=== PATIENT | female | born 1930 | race Caucasian/White ===

== ENCOUNTER → 2017-06-09 10:19 | Emergency (ER) | payer MEDICARE ==
[~2017-06-09 10:19] MED LIST: NS 0.9% 1000 ML* 1,000 ML IV ONE; cefTRIAXone(*) 1 GM in NS 0.9% 50 ML* 50 ML IVPB ONE
--- NOTE | 2017-06-09 12:07 | RAD ---
INDICATION: Head trauma after a fall COMPARISON: None. TECHNIQUE: Contiguous axial sections of the brain were obtained from the skull base to the vertex without contrast. FINDINGS: The ventricles, cisterns and sulci exhibit symmetrical involutional changes. There is periventricular and subcortical white matter hypoattenuation most consistent with chronic microvascular disease in a patient of this age. Otherwise, the schmid-white matter differentiation is adequately maintained and there is no sulcal effacement. No significant focal abnormality or mass effect is present. There is no evidence for intracranial hemorrhage. Coarse atherosclerotic calcification is noted at the bilateral petrous carotid arteries and the left greater than right vertebral arteries. No significant focal osseous abnormality is present. The visualized portion of the paranasal sinuses and mastoid air cells appear clear. IMPRESSION: Chronic age-appropriate findings described above without evidence of acute traumatic injury.
[2017-06-09 12:26] LABS: Urine Bacteria Absent (Absent); Urine Bilirubin Negative (Negative); Urine Glucose Negative (Negative); Urine Nitrite Positive (Negative)
[2017-06-09 12:29] LABS: Hematocrit 34 % (35-47); Hemoglobin 11.3 g/dl (12.0-16.0); Mean Corpuscular HGB Conc 33 g/dl (31-36); Mean Corpuscular Hemoglobin 30 pg (27-31); Mean Corpuscular Volume 91 fL (80-97); Mean Platelet Volume 7 um3 (7.4-10.4); Red Blood Count 3.71 10^6/ul (4.0-5.4); Red Cell Distribution Width 13 % (10.5-15); White Blood Count 7.3 10^3/ul (3.5-10.8)
[2017-06-09 12:45] LABS: Albumin 4.1 g/dL (3.2-5.2); BUN/Creatinine Ratio 16.3 (8-20); Calcium 9.1 mg/dL (8.6-10.3); EGFR Non-African American 53.7 (>60); Magnesium 2.2 mg/dL (1.9-2.7); Potassium 4.3 mmol/L (3.5-5.0); Total Bilirubin 0.3 mg/dL (0.2-1.0); Total Protein 7.1 g/dL (6.4-8.9)
[2017-06-09 12:55] LABS: TSH (Thyroid Stimulating Horm) 1.45 mcIU/mL (0.34-5.60)
[2017-06-09 15:15] VITALS: BP 149/86
--- NOTE | 2017-06-09 18:45 | ED ---
Mina Anh Auryana, scribed for Temo Brown MD on 06/09/17 at 1105 . Head Injury - HPI Summary HPI Summary: 87 year old female presents to the ED s/p fall and head injury. Per health care sanitary technician - patient stood up after eating breakfast and fell backwards. Patient denies any recent sickness, fever, chills, headache, neck pain, syncope or any LOC. Ditch Cleaner reports that patient has had pain and burning with urination, but had negative UA screen last week. Ditch Cleaner also reports increased weakness and decreased activity - reports patient has been laying in bed more often. 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 Patient states that she finds increasing difficultly with getting out of chairs. She is not on any blood thinners. PMHx is significant for OA and U.T.I. She currently lives in [facility]. - History Of Current Complaint Chief Complaint: EDHeadInjury Stated Complaint: FALL Time Seen by Provider: 06/09/17 11:00 Hx Obtained From: Patient Mechanism Of Injury: Fall From A Standing Position Onset/Duration: Started Hours Ago, Still Present Severity Currently: None Pain Intensity: 0 - patient denies any pain Pain Scale Used: 0-10 Numeric Associated Signs And Symptoms: Negative, Other: - burning and pain with urination Related History: Similar Episode/Dx as - yes - similar episode 2 days ago - Allergies/Home Medications Allergies/Adverse Reactions: Allergies Allergy/AdvReac Type Severity Reaction Status Date / Time Bee Venom Allergy Anaphylatic Verified 10/23/15 06:58 Shock Penicillins Allergy Unknown Verified 10/23/15 06:58 Reaction Details PMH/Surg Hx/FS Hx/Imm Hx Infectious Disease History: No Infectious Disease History: Denies: Traveled Outside the [place] in Last 30 Days - Family History Known Family History: Negative: Cardiac Disease, Hypertension - Social History Alcohol Use: None Substance Use Type: Reports: None Smoking Status (MU): Never Smoked Tobacco Review of Systems Constitutional: Negative Negative: Fever Eyes: Negative ENT: Negative Cardiovascular: Negative Respiratory: Negative Gastrointestinal: Negative Positive: burning, pain Musculoskeletal: Negative Negative: Myalgia Skin: Negative Neurological: Negative Negative: Headache, Syncope Psychological: Normal All Other Systems Reviewed And Are Negative: Yes Physical Exam - Summary Physical Exam Summary: The patient is well-nourished in no acute distress and in no acute pain. She appears well hydrated. The skin is warm and dry and skin color reflects adequate perfusion. HEENT: The head is normocephalic and atraumatic. The pupils are equal and reactive. The conjunctivae are clear and without drainage. Nares are patent and without drainage. Mouth reveals moist mucous membranes and the throat is without erythema and exudate. The external ears are intact. The ear canals are patent and without drainage. The tympanic membranes are intact. There is no bruising on the occiput, no winston signs, no hemotypamun, and no raccoon signs. Neck is supple with full range of motion and non-tender. There are no carotid bruits. There is no neck vein distension. Respiratory: Chest is non-tender. Lungs are clear to auscultation and breath sounds are symmetrical and equal. Cardiovascular: Hear is regular rate and rhythm. There is no murmur or rub auscultated. There is no peripheral edema and pulses are symmetrical and equal. Abdomen: The abdomen is soft and non-tender. There are normal bowel sounds heard in all four quadrants and there is no organomegaly palpated. : There is no visible blood within the urethra. There is blood within the vaginal canal. Patient is too uncomfortable for a pelvic exam. ( Female el Santamaria RN) Rectal exam - There is good rectal tone with no gross blood. Musculoskeletal: There is no back pain noted. Extremities are non-tender with full range of motion. There is good capillary refill. There is slight edema in the lower extremities. There is no calf tenderness elicited. Neurological: Patient is alert and oriented to person, place and time. The patient has symmetrical motor strength in all four extremities. Cranial nerves are grossly intact. Deep tendon reflexes are symmetrical and equal in all four extremities. There is no motor weakness in the arms or legs. Psychiatric: The patient has an appropriate affect and does not exhibit any anxiety or depression. Triage Information Reviewed: Yes Vital Signs On Initial Exam: Initial Vitals Temp Pulse Resp BP Pulse Ox 97.9 F 72 18 103/63 92 06/09/17 10:06/09/17 10:06/09/17 10:17 10:24 06/09/17 10:24 Vital Signs Reviewed: Yes Diagnostics - Vital Signs Vital Signs Temp Pulse Resp BP Pulse Ox 06/09/17 10:24 97.9 F 72 18 103/63 92 - Laboratory Lab Results: Lab Results 06/09/17 06/09/17 06/09/17 Range/Units 11:45 11:45 11:45 WBC 7.3 (3.5-10.8) 10^3/ul RBC 3.71 L (4.0-5.4) 10^6/ul Hgb 11.3 L (12.0-16.0) g/dl Hct 34 L (35-47) % MCV 91 (80-97) fL MCH 30 (27-31) pg MCHC 33 (31-36) g/dl RDW 13 (10.5-15) % Plt Count 258 (150-450) 10^3/ul MPV 7 L (7.4-10.4) um3 Neut % (Auto) 57.7 (38-83) % Lymph % (Auto) 31.9 (25-47) % Throckmorton % (Auto) 8.2 (1-9) % Eos % (Auto) 1.3 (0-6) % Baso % (Auto) 0.9 (0-2) % Absolute Neuts (auto) 4.2 (1.5-7.7) 10^3/ul Absolute Lymphs (auto) 2.3 (1.0-4.8) 10^3/ul Absolute Monos (auto) 0.6 (0-0.8) 10^3/ul Absolute Eos (auto) 0.1 (0-0.6) 10^3/ul Absolute Basos (auto) 0.1 (0-0.2) 10^3/ul Absolute Nucleated RBC 0 10^3/ul Nucleated RBC % 0 Sodium 137 (133-145) mmol/L Potassium 4.3 (3.5-5.0) mmol/L Chloride 104 (101-111) mmol/L Carbon Dioxide 29 (22-32) mmol/L Anion Gap 4 (2-11) mmol/L BUN 16 (6-24) mg/dL Creatinine 0.98 H (0.51-0.95) mg/dL Est GFR ( Amer) 69.0 (>60) Est GFR (Non-Af Amer) 53.7 (>60) BUN/Creatinine Ratio 16.3 (8-20) Glucose 80 (70-100) mg/dL Lactic Acid (0.5-2.0) mmol/L Calcium 9.1 (8.6-10.3) mg/dL Magnesium 2.2 (1.9-2.7) mg/dL Total Bilirubin 0.30 (0.2-1.0) mg/dL AST 18 (13-39) U/L ALT 11 (7-52) U/L Alkaline Phosphatase 59 (34-104) U/L Troponin I 0.00 (<0.04) ng/mL Total Protein 7.1 (6.4-8.9) g/dL Albumin 4.1 (3.2-5.2) g/dL Globulin 3.0 (2-4) g/dL Albumin/Globulin Ratio 1.4 (1-3) TSH 1.45 (0.34-5.60) mcIU/mL Urine Color Yellow Urine Appearance Cloudy Urine pH 8.0 (5-9) Ur Specific Howe 1.012 (1.010-1.030) Urine Protein 1+(30 mg/dl) H (Negative) Urine Ketones Negative (Negative) Urine Blood 3+ H (Negative) Urine Nitrate Positive H (Negative) Urine Bilirubin Negative (Negative) Urine Urobilinogen Negative (Negative) Ur Leukocyte Esterase 3+ H (Negative) Urine WBC (Auto) 3+(>20/hpf) H (Absent) Urine RBC (Auto) 3+(>10/hpf) H (Absent) Ur Squamous Epith Cells Present H (Absent) Urine Bacteria Absent (Absent) Urine Glucose Negative (Negative) Urine Ascorbic Acid * H (Negative) 06/09/17 Range/Units 11:45 WBC (3.5-10.8) 10^3/ul RBC (4.0-5.4) 10^6/ul Hgb (12.0-16.0) g/dl Hct (35-47) % MCV (80-97) fL MCH (27-31) pg MCHC (31-36) g/dl RDW (10.5-15) % Plt Count (150-450) 10^3/ul MPV (7.4-10.4) um3 Neut % (Auto) (38-83) % Lymph % (Auto) (25-47) % Throckmorton % (Auto) (1-9) % Eos % (Auto) (0-6) % Baso % (Auto) (0-2) % Absolute Neuts (auto) (1.5-7.7) 10^3/ul Absolute Lymphs (auto) (1.0-4.8) 10^3/ul Absolute Monos (auto) (0-0.8) 10^3/ul Absolute Eos (auto) (0-0.6) 10^3/ul Absolute Basos (auto) (0-0.2) 10^3/ul Absolute Nucleated RBC 10^3/ul Nucleated RBC % Sodium (133-145) mmol/L Potassium (3.5-5.0) mmol/L Chloride (101-111) mmol/L Carbon Dioxide (22-32) mmol/L Anion Gap (2-11) mmol/L BUN (6-24) mg/dL Creatinine (0.51-0.95) mg/dL Est GFR ( Amer) (>60) Est GFR (Non-Af Amer) (>60) BUN/Creatinine Ratio (8-20) Glucose (70-100) mg/dL Lactic Acid 1.3 (0.5-2.0) mmol/L Calcium (8.6-10.3) mg/dL Magnesium (1.9-2.7) mg/dL Total Bilirubin (0.2-1.0) mg/dL AST (13-39) U/L ALT (7-52) U/L Alkaline Phosphatase (34-104) U/L Troponin I (<0.04) ng/mL Total Protein (6.4-8.9) g/dL Albumin (3.2-5.2) g/dL Globulin (2-4) g/dL Albumin/Globulin Ratio (1-3) TSH (0.34-5.60) mcIU/mL Urine Color Urine Appearance Urine pH (5-9) Ur Specific Howe (1.010-1.030) Urine Protein (Negative) Urine Ketones (Negative) Urine Blood (Negative) Urine Nitrate (Negative) Urine Bilirubin (Negative) Urine Urobilinogen (Negative) Ur Leukocyte Esterase (Negative) Urine WBC (Auto) (Absent) Urine RBC (Auto) (Absent) Ur Squamous Epith Cells (Absent) Urine Bacteria (Absent) Urine Glucose (Negative) Urine Ascorbic Acid (Negative) Result Diagrams: 06/09/17 11:45 06/09/17 11:45 Lab Statement: Any lab studies that have been ordered have been reviewed, and results considered in the medical decision making process. - CT BRAIN CT Interpretation: Positive (See Comments) - IMPRESSION: Chronic age- appropriate findings described above without evidence of acute traumatic injury. CT Interpretation Completed By: Radiologist Re-Evaluation - Re-Evaluation First Eval Re-Evaluation Time: 14:25 - discussed plan of action - patient agrees Head Injury Course/Dx Assessment/Plan: 87 year old female presents to the ED s/p fall and head injury. Per health care sanitary technician - patient stood up after eating breakfast and fell backwards. Patient denies any recent sickness, fever, chills, headache, neck pain, syncope or any LOC. Ditch Cleaner reports that patient has had pain and burning with urination, but had negative UA screen last week. Ditch Cleaner also reports increased weakness and decreased activity - reports patient has been lying in bed more often. 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 Patient states that she finds increasing difficulty with getting out of chairs. She is not on any blood thinners. PMHx is significant for OA and U.T.I. She currently lives in [facility] living homestead. In ED course, patient was given IV fluids and rocephin. Blood work shows RBC 3.71, Hgb 11.3, Hct 34, creatinine 0.98, troponin 0.00, TSH 1.45, lactic acid 1.3. LFTs are WNL. UA is contaminated 1+ protein, 3+ blood, (+) nitrate, 3+ leukocyte esterase, 3+ WBC, RBC 3+. Stool Occult is negative. CT BRAIN IMPRESSION: Chronic age-appropriate findings described above without evidence of acute traumatic injury. On re-evaluation, plan of action was discussed. Patient will be discharged back to [facility] with prescription for Macrobid. Patient agrees and understands. Dx: U.T.I., hematuria. The patient was discussed with Dr. Alvarez (15:30) and she agrees with current plan. Recommended that patient return if symptoms worsen or do not improve. - Diagnoses Provider Diagnoses: Urinary tract infection, Hematuria Discharge - Discharge Plan Condition: Stable Disposition: HOME Prescriptions: Nitrofurantoin Monohyd Macro [Macrobid] 100 mg PO BID #14 cap Patient Education Materials: Nitrofurantoin Combination (By mouth), Hematuria ( ED), Urinary Traction Infection in Older Adults (ED) Referrals: Senior Ashly Yeager [Primary Care Provider] - 2 Days The documentation as recorded by the Mina foster Auryana accurately reflects the service I personally performed and the decisions made by me, Temo Brown MD.
--- NOTE | 2017-06-11 09:37 | PN ---
Progress Note - Progress Note Date of Service: 06/09/17 Note: Patient preliminary urine culture results obtained and showed >100,000 of proteus mirabilis. Treated with Macrobid. Will wait for final susceptibility culture results. No action needed at this time.
== END | disposition home or self-care (01) ==
LOC: ED 10:19
DX: N39.0 Urinary tract infection, site not specified (principal); R31.9 Hematuria, unspecified; W19.XXXA Unspecified fall, initial encounter; Y92.9 Unspecified place or not applicable; Z88.0 Allergy status to penicillin
CPT/HCPCS: 36415; 70450; 80053; 81003; 81015; 82270; 83605; 83735; 84443; 84484; 85025; 87077; 87086; 87186; 96374; 99283; J0696

== ENCOUNTER 2017-06-12 09:10 | Emergency (ER) | payer MEDICARE ==
--- NOTE | 2017-06-12 10:54 | ED ---
Back Pain - HPI Summary HPI Summary: Alzheimer pt here w/ back pain this morning per senior living staff. Pt typically gets up and out of bed on her own every morning however this morning was found still lying in her bed by time she's usually up. Staff went to sit her up and she screamed out in pain. Nurse w/ her today reports pt had tenderness over her thoracic spine at that time and so was brought in for evaluation - nurse reports no pain over lower back. Nursing reports pt fell last week - had KEARNS and lumbar pain - had a head CT but no COREY imaging. She also has a UTI as well - was started on macrobid which was resistant - PCP switched to cipro just yesterday. Pt and nurse deny known fever, chills, vomiting, diarrhea, ab pain, chest pain, SOB, LE pain or weakness, neck pain, UE's pain. - History of Current Complaint Chief Complaint: EDBackInjuryPain Stated Complaint: FALL/BACK PAIN Time Seen by Provider: 06/12/17 09:28 Hx Obtained From: Patient, Family/Rice Drier - senior living staff Pain Intensity: 3 - Allergies/Home Medications Allergies/Adverse Reactions: Allergies Allergy/AdvReac Type Severity Reaction Status Date / Time Bee Venom Allergy Anaphylatic Verified 10/23/15 06:58 Shock Penicillins Allergy Unknown Verified 10/23/15 06:58 Reaction Details Home Medications: Home Medications Acetaminophen TAB* [Tylenol TAB*] 650 mg PO BID 06/12/17 [History Confirmed 11/28] Alum & Mag Hydrox-Simethicone [Antacid M 200-200-20 mg/5Ml] 15 ml PO Q4HR PRN [History Confirmed 06/12/17] Ciprofloxacin TAB* [Cipro 250 MG Tab*] 250 mg PO BID 06/12/17 [History Confirmed 06/12/17] Epinephrine [Epipen 2-Spencer] 0.3 mg IM ONCE PRN 06/12/17 [History Confirmed ] Mirtazapine TAB* [Remeron TAB*] 22.5 mg PO BEDTIME 06/12/17 [History Confirmed 06/12/17] Polyethylene Glycol 3350* [Miralax*] 17 gm PO EVERY OTHER DAY PRN 06/12/17 [ History Confirmed 06/12/17] QUEtiapine TAB* [SEROquel TAB*] 25 mg PO QAM 06/12/17 [History Confirmed ] QUEtiapine TAB* [SEROquel TAB*] 50 mg PO QPM 06/12/17 [History Confirmed ] Sennosides-Docusate Sodium [Senna-S 8.6-50 mg] 2 tab PO BEDTIME 06/12/17 [ History Confirmed 06/12/17] PMH/Surg Hx/FS Hx/Imm Hx Previously Healthy: No - UTI at present Endocrine/Hematology History: Denies: Hx Anticoagulant Therapy History: Reports: Hx Kidney Infection - currently on cipro x 1 day, was switched from macrodantin Musculoskeletal History: Reports: Hx Osteoporosis Neurological History: Reports: Hx Dementia - Alzheimer's - Cancer History Cancer Type, Location and Year: BREAST [place] Infectious Disease History: Denies: Traveled Outside the [place] in Last 30 Days - Family History Known Family History: Negative: Cardiac Disease, Hypertension - Social History Occupation: Retired Lives: At [facility] Alcohol Use: None Hx Substance Use: No Substance Use Type: Reports: None Hx Tobacco Use: No Smoking Status (MU): Never Smoked Tobacco Review of Systems - ROS Summary Review of Systems Summary: Level 5 caveat - pt has alzheimer's dementia - nursing contributes to HPI and ROS Constitutional: Negative Negative: Fever, Chills, Fatigue Cardiovascular: Negative Negative: Chest Pain Respiratory: Negative Negative: Shortness Of Breath, Cough Gastrointestinal: Negative Negative: Abdominal Pain, Vomiting, Diarrhea, Nausea Positive: see HPI Skin: Negative Negative: Rash, Bruising Neurological: Negative Negative: Headache, Weakness, Paresthesia, Numbness, Syncope Psychological: Normal - for baseline All Other Systems Reviewed And Are Negative: Yes Physical Exam Triage Information Reviewed: Yes Vital Signs On Initial Exam: Initial Vitals Temp Pulse Resp BP 97.8 F 72 16 130/57 06/12/17 10:14 06/12/17 10:14 06/12/17 10:14 06/12/17 10:14 Vital Signs Reviewed: Yes Appearance: Positive: Well-Appearing, No Pain Distress - lying supine on stretcher, Well-Nourished Skin: Positive: Warm, Dry - no signs of ecchymosis or erythema although posterior aspect of body w/ limited visualization as pt has pain w/ rolling over /sitting up Head/Face: Positive: Normal Head/Face Inspection Eyes: Positive: EOMI, Conjunctiva Clear ENT: Positive: Hearing grossly normal, Pharynx normal - mucosa somewhat dry Neck: Positive: Supple, Nontender Respiratory/Lung Sounds: Positive: Clear to Auscultation, Breath Sounds Present Cardiovascular: Positive: RRR, Pulses are Symmetrical in both Upper and Lower Extremities. Negative: Leg Edema Left, Leg Edema Right Abdomen Description: Positive: Nontender - pt reports urge to urinate w/ lower ab palpation, No Organomegaly, Soft. Negative: CVA Tenderness (R) - palpation only - can't tap d/t pt's inability to sit up or roll over, CVA Tenderness (L) - palpation only - can't tap d/t pt's inability to sit up or roll over Bowel Sounds: Positive: Present Musculoskeletal: Positive: Strength/ROM Intact - UE's and LE's FROM - reports some soreness in shoulders w/ UE's movements; no pain w/ cervical or LE ROM; spinous pp palpated with pt lying supine (reached under back) - denies TTP however appears more distressed with palpation of thoracic spinous pp Neurological: Positive: Sensory/Motor Intact, CN Intact II-III. Negative: Alert , Oriented to Person Place, Time - Pt believes it is in December, unsure of her current location and does not know the current president; some of her responses to direct questions are inappropriate - she is calm and cooperative - she was not sure if she's had breakfast this morning (staff w/ her states she has not had breakfast this morning) and she is hungry Psychiatric: Positive: Normal - pleasant Diagnostics - Vital Signs Vital Signs Temp Pulse Resp BP 06/12/17 10:14 97.8 F 72 16 130/57 - Laboratory Result Diagrams: 06/12/17 12:15 06/12/17 12:15 Lab Statement: Any lab studies that have been ordered have been reviewed, and results considered in the medical decision making process. Back Pain Course/Dx - Course Course Of Treatment: Pt here w/ inability to get out of bed this morning d/t pain which she does not describe well. She has had a UTI w/ ineffective anbx until yesterday. She also fell recently so labs as well as imaging were ordered. Pt's imaging is negative for acute findngs of trauma (ie. fracture, bleeding, organ laceration, etc) and she does not appear to have a urinary tract stone. Her ALT and AST are elevated which could have been triggered by the macrobid she was taking the past few days as liver and gallbladder are unremarkable on CT, ab NTTP and ND - pt is reporting hunger/no pain/n/v/ diarrhea. (NOTE: LFT's can be elevated by other meds she's taking as well - quetiapine, acetaminophen, etc). Macrobid has been stopped and new anbx (cipro which is effective) started yesterday. Her WBC's are WNL and H&H stable from previous visit. CRP, lactic are elevated today - no previous for comparison as infection was not suspected at last visit. These are most likely elevated from poorly treated UTI. She is effectively being treated w/ cipro x 1 day as of now. Advise continuation of UTI treatment w/ cipro and close f/u w/ PCP for repeat LFT's by end of week. Will advise holding acetaminophen until cleared to restart by PCP - will not stop other meds in question as these may need to be tapered and replaced by similar meds for mood control. Source of pain today is unknown but may be delayed COREY pain from fall - will provide with ibuprofen for pain and may eat. Dicussed results and plan w/ pt's daughter who agrees. - Diagnoses Provider Diagnoses: Acute pain, UTI (urinary tract infection), Elevated LFTs - Provider Notifications Discussed Care Of Patient With: Temo Brown Discharge - Discharge Plan Condition: Stable Disposition: HOME Patient Education Materials: Urinary Tract Infection in Women (ED) Referrals: Senior Ashly Yeager [Primary Care Provider] - Dawna Urias MD [Medical Doctor] - Additional Instructions: You came to ED today for acute pain of unknown origin. This pain was worse with certain movements so tests were ordered to asses for injuries. Upon finding none involving the musculoskeletal system, you are being discharged with ibuprofen for pain. You do have a UTI which has not been treated effectively until yesterday - it is advised that you continue Cipro as directed and drink plenty of water. Follow-up with PCP to monitor course of treatment. You were also found to have elevated liver enzymes - the cause of which is unknown although some of the medications you have taken can cause this. One is macrobid, the UTI antibiotic you were started on a few days ago. This has been stopped so if it was causing issues, enzymes should continue to improve. Other medications that can cause this are tylenol - STOP taking this until cleared by PCP. Other meds on your list may also be triggering liver enzymes to elevate - please discuss with PCP for further evaluation and discussion. Call PCP today to schedule follow-up appointment. *If you develop intractable pain, chest pain, shortness of breath, abdominal pain, weakness, vomiting, diarrhea, fever, return to ED
--- NOTE | 2017-06-12 11:57 | RAD ---
INDICATION: Thoracic pain. COMPARISON: Comparison is made with a prior chest x-ray study from January 21, 2016. TECHNIQUE: AP and lateral views of the chest were obtained. FINDINGS: The heart is mildly enlarged. There appears to be a moderate-sized hilar hernia present. There is mild prominence of the interstitial markings which appear unchanged. No focal infiltrate or pleural effusion is seen. There is flattening of the diaphragms suggestive of chronic obstructive pulmonary disease. The vertebra appear osteopenic. No fracture is seen. IMPRESSION: NO EVIDENCE FOR ACUTE FINDING.
--- NOTE | 2017-06-12 12:22 | RAD ---
CLINICAL HISTORY: Back pain and UTI with a reported fall one week earlier. COMPARISON: None TECHNIQUE: Noncontrast CT examination of the abdomen and pelvis from the lung bases through the initial tuberosities. FINDINGS: VISUALIZED LUNG BASES: There is a large hiatal hernia allowing the stomach to herniate into the midline lower thorax. There is compressive atelectasis at the medial aspects of the right and left lower lobes adjacent to this hernia. The lung is otherwise adequately clear. There is no pleural effusion. ABDOMEN AND PELVIS: Evaluation of the solid organs and vasculature is limited without intravenous contrast. The liver, spleen, pancreas and adrenal glands are grossly normal in appearance. There are multiple hyperattenuating stones in the dependent portion of the gallbladder. The kidneys are normal in appearance without focal mass, calcification or signs of hydronephrosis. Evaluation of the gastrointestinal tract is limited without oral contrast. The small and large bowel are not distended.The patient's normal appendix is identified in the right lower quadrant measuring 5 mm in diameter with air in the distal tip (axial image 90). There is no gross retroperitoneal or mesenteric lymphadenopathy. The uterus appears to be surgically absent. There is scattered atherosclerotic calcification of the lower abdominal aorta extending into the iliac arteries Degenerative changes include multilevel loss of intervertebral disc height involving the lower thoracic and lumbar spine most severely at L3/L4 where there is endplate sclerosis and vacuum disc phenomenon.There are no sinister bone lesions. IMPRESSION: 1. No renal calculi or signs of hydroureter nephrosis. 2. Multilevel degenerative changes of the thoracic and lumbar spine but no evidence of acute fracture or dislocation. 3. Chronic findings include a very large hiatal hernia allowing the stomach to herniate into the low midline thorax and cholelithiasis without signs of biliary obstruction. 4. There are additional chronic, degenerative and iatrogenic findings described in the body the report.
[2017-06-12 12:23] VITALS: BP 145/78
[2017-06-12 12:37] LABS: Hematocrit 32 % (35-47); Hemoglobin 10.6 g/dl (12.0-16.0); Mean Corpuscular HGB Conc 33 g/dl (31-36); Mean Corpuscular Hemoglobin 30 pg (27-31); Mean Corpuscular Volume 91 fL (80-97); Mean Platelet Volume 7 um3 (7.4-10.4); Red Blood Count 3.51 10^6/ul (4.0-5.4); Red Cell Distribution Width 14 % (10.5-15)
[2017-06-12 13:10] LABS: Albumin 3.5 g/dL (3.2-5.2); BUN/Creatinine Ratio 19.6 (8-20); C Reactive Protein 114.04 mg/L (< 5.00); Calcium 9.1 mg/dL (8.6-10.3); EGFR African American 74.3 (>60); EGFR Non-African American 57.7 (>60); Total Bilirubin 0.5 mg/dL (0.2-1.0); Total Protein 6.5 g/dL (6.4-8.9)
[2017-06-12] MEDS ORDERED: Ibuprofen TAB* 400 MG PO ONE (14:05)
== END 2017-06-12 14:59 | disposition home or self-care (01) ==
LOC: ED 09:10
DX: N39.0 Urinary tract infection, site not specified (principal); M54.9 Dorsalgia, unspecified; R94.5 Abnormal results of liver function studies
CPT/HCPCS: 36415; 71020; 74176; 80053; 83605; 85025; 86140; 87040; 99283; A9270-GY

== ENCOUNTER 2018-01-15 16:06 | Inpatient (IN) | payer MEDICARE ==
[2018-01-15 18:32] LABS: ABS Basophils 0.1 10^3/ul (0-0.2); ABS Eosinophils 0 10^3/ul (0-0.6); ABS Lymphocytes 1.8 10^3/ul (1.0-4.8); ABS Monocytes 0.7 10^3/ul (0-0.8); ABS Neutrophils 7.2 10^3/ul (1.5-7.7); ABS Nucleated RBC 0 10^3/ul; Eosinophil % 0.2 % (0-6); Hematocrit 33 % (35-47); Lymphocyte % 18.2 % (25-47); Mean Corpuscular HGB Conc 33 g/dl (31-36); Mean Corpuscular Hemoglobin 29 pg (27-31); Mean Corpuscular Volume 89 fL (80-97); Mean Platelet Volume 7 um3 (7.4-10.4); Nucleated Red Blood Cells % 0.1; Platelet Count 273 10^3/ul (150-450); Red Blood Count 3.75 10^6/ul (4.0-5.4); Red Cell Distribution Width 16 % (10.5-15); White Blood Count 9.8 10^3/ul (3.5-10.8)
[2018-01-15 18:54] LABS: EGFR Non-African American 52.4 (>60)
--- NOTE | 2018-01-15 18:54 | RAD ---
Indication: Vomiting. Flat and upright views of the abdomen demonstrates hiatal hernia. No dilated loops of bowel are noted. Gas is noted in the colon. No organomegaly is noted. IMPRESSION: Hiatal hernia. No definite obstructive pattern is noted.
--- NOTE | 2018-01-15 18:55 | RAD ---
Indication: Vomiting. 2 views of the chest which is large hiatal hernia. Lungs are clear. Cardiomegaly is noted. When compared to previous exam of June 12, 2017 no significant change is noted. IMPRESSION: Hiatal hernia. No definite pneumonia.
--- NOTE | 2018-01-15 19:04 | RAD ---
Indication: Dilated esophagus, vomiting. CT of the chest performed without IV contrast administration. Coronal and sagittal reconstructed images were obtained. There is a dilated esophagus up to the level of the gastroesophageal junction with a large hiatal hernia noted. No definite mediastinal adenopathy noted. Inferior thyroid lobes are unremarkable. The trachea and major bronchi appear patent. There is in the right apex anteriorly area of linear likely atelectasis noted. Atelectasis is noted in the right middle lobe. No alveolar consolidation is noted. Atelectasis is noted in the left base as well adjacent to the hiatal hernia. No focal masses are noted. Left apical scarring is also noted. IMPRESSION: There is a large fixed hiatal hernia. Moderately dilated esophagus. Likely scarring in both lung apices.
[2018-01-15] MEDS ORDERED: NS 0.9% 1000 ML* 1,000 ML IV ONE (19:05)
[2018-01-15 19:12] LABS: Urine Appearance Clear; Urine Blood Negative (Negative); Urine Color Yellow; Urine Ketones Trace (Negative); Urine Protein Negative (Negative); Urine Specific Gravity 1.011 (1.010-1.030); Urine Urobilinogen Negative (Negative)
[2018-01-15] MEDS ORDERED: Ondansetron INJ* 2 MG/ML VIAL IV PRN (20:24)
[2018-01-15] MEDS ORDERED: Pantoprazole IV* 40 MG IV ONE (20:35)
--- NOTE | 2018-01-15 21:43 | ED ---
Duarte Ahn Stephanie, scribed for Elkin Aaron MD on 01/15/18 at 1659 . Abdominal Pain/Female - HPI Summary HPI Summary: The pt is an 87 y/o F presenting to the ED with c/o abd pain that began at 15: 00 today. Symptoms include nausea and hematemesis (4x- with mucus). - History of Current Complaint Chief Complaint: EDAbdPain Stated Complaint: GI ISSUE Time Seen by Provider: 01/15/18 16:54 Hx Obtained From: Patient, Family/Icer Air Conditioning - licensed psychologist manager from long-term ?: No Onset/Duration: Gradual Onset, Lasting Hours - 2, Still Present Timing: Constant Severity Currently: None Pain Intensity: 0 Pain Scale Used: 0-10 Numeric Location: Discrete At: RLQ Radiates: No Aggravating Factor(s): Nothing Alleviating Factor(s): Nothing Associated Signs and Symptoms: Positive: Nausea, Vomiting - hematemesis Allergies/Adverse Reactions: Allergies Allergy/AdvReac Type Severity Reaction Status Date / Time bee venom protein (honey bee) Allergy Anaphylatic Verified 01/15/18 20:16 Shock Penicillins Allergy Unknown Verified 01/15/18 20:16 Reaction Details Home Medications: Home Medications Calcium Carbonate CHEW TAB* [Tums*] 500 mg PO Q8H PRN 01/15/18 [History Confirmed 01/15/18] EPINEPHrine SYR* [EPINEPHphrine SYR*] 0.3 mg IM ONCE PRN 01/15/18 [History Confirmed 01/15/18] Ferrous Sulfate TAB* 325 mg PO QAM 01/15/18 [History Confirmed 01/15/18] Methyl Salicylate/Menth/Camph [Bengay Ultra Strength 4-10-30 %] 1 cre TOPICAL Q4H PRN 01/15/18 [History Confirmed 01/15/18] PMH/Surg Hx/FS Hx/Imm Hx Endocrine/Hematology History: Denies: Hx Anticoagulant Therapy History: Reports: Hx Kidney Infection - currently on cipro x 1 day, was switched from macrodantin Musculoskeletal History: Reports: Hx Osteoporosis Neurological History: Reports: Hx Dementia - Alzheimer's - Cancer History Cancer Type, Location and Year: BREAST CA - Surgical History Surgery Procedure, Year, and Place: unable to obtain Infectious Disease History: No Infectious Disease History: Denies: Traveled Outside the [place] in Last 30 Days - Family History Known Family History: Negative: Cardiac Disease, Hypertension - Social History Occupation: Retired [facility]: [facility] Alcohol Use: None Hx Substance Use: No Substance Use Type: Reports: None Hx Tobacco Use: No Smoking Status (MU): Never Smoked Tobacco Review of Systems Negative: Fever Positive: Abdominal Pain, Vomiting, Nausea, Other - hematemesis All Other Systems Reviewed And Are Negative: Yes Physical Exam - Summary Physical Exam Summary: Appearance: mildly ill-appearing, Well-nourished, pale, Skin: Warm, Dry, No rash Eyes: Normal, PERRL, EOMI, sclera anicteric ENT: Normal Neck: Supple, nontender Respiratory: rales at R base Cardiovascular: S1, S2, no murmur, no rub, no gallop, tachycardic Abdomen: Soft, nontender, no organomegaly, mild abd pain, Bowel sounds: Present Musculoskeletal: Normal, Strength/ROM Intact, no edema, pulses symmetrical Neurological: Awake, doesnt know where she is, agitated cranial nerves II-XII WNL, follows commands, gait not tested, sensation intact to pin and light touch , confused Psychiatric: affect normal, behavior appropriate, dressed appropriately, judgment intact Triage Information Reviewed: Yes Vital Signs On Initial Exam: Initial Vitals Temp Pulse Resp BP Pulse Ox 99.2 F 99 15 151/78 95 01/15/18 16:15 01/15/18 16:15 01/15/18 16:15 01/15/18 16:15 01/15/18 16:15 Vital Signs Reviewed: Yes Diagnostics - Vital Signs Vital Signs Temp Pulse Resp BP Pulse Ox 01/15/18 16:15 99.2 F 99 15 151/78 95 - Laboratory Lab Results: Lab Results 01/15/18 01/15/18 01/15/18 Range/Units 18:19 18:20 18:20 WBC 9.8 (3.5-10.8) 10^3/ul RBC 3.75 L (4.0-5.4) 10^6/ul Hgb 11.0 L (12.0-16.0) g/dl Hct 33 L (35-47) % MCV 89 (80-97) fL MCH 29 (27-31) pg MCHC 33 (31-36) g/dl RDW 16 H (10.5-15) % Plt Count 273 (150-450) 10^3/ul MPV 7 L (7.4-10.4) um3 Neut % (Auto) 74.3 (38-83) % Lymph % (Auto) 18.2 L (25-47) % Thomas % (Auto) 6.7 (0-7) % Eos % (Auto) 0.2 (0-6) % Baso % (Auto) 0.6 (0-2) % Absolute Neuts (auto) 7.2 (1.5-7.7) 10^3/ul Absolute Lymphs (auto) 1.8 (1.0-4.8) 10^3/ul Absolute Monos (auto) 0.7 (0-0.8) 10^3/ul Absolute Eos (auto) 0 (0-0.6) 10^3/ul Absolute Basos (auto) 0.1 (0-0.2) 10^3/ul Absolute Nucleated RBC 0 10^3/ul Nucleated RBC % 0.1 Sodium 138 (133-145) mmol/L Potassium 4.0 (3.5-5.0) mmol/L Chloride 104 (101-111) mmol/L Carbon Dioxide 28 (22-32) mmol/L Anion Gap 6 (2-11) mmol/L BUN 22 (6-24) mg/dL Creatinine 1.00 H (0.51-0.95) mg/dL Est GFR ( Amer) 67.4 (>60) Est GFR (Non-Af Amer) 52.4 (>60) BUN/Creatinine Ratio 22.0 H (8-20) Glucose 141 H (70-100) mg/dL Calcium 9.5 (8.6-10.3) mg/dL Total Bilirubin 0.30 (0.2-1.0) mg/dL AST 15 (13-39) U/L ALT 10 (7-52) U/L Alkaline Phosphatase 53 (34-104) U/L Total Protein 6.9 (6.4-8.9) g/dL Albumin 4.1 (3.2-5.2) g/dL Globulin 2.8 (2-4) g/dL Albumin/Globulin Ratio 1.5 (1-3) Lipase 185 H (11.0-82.0) U/L Urine Color Yellow Urine Appearance Clear Urine pH 6.0 (5-9) Ur Specific [place] 1.011 (1.010-1.030) Urine Protein Negative (Negative) Urine Ketones Trace A (Negative) Urine Blood Negative (Negative) Urine Nitrate Negative (Negative) Urine Bilirubin Negative (Negative) Urine Urobilinogen Negative (Negative) Ur Leukocyte Esterase 1+ A (Negative) Urine WBC (Auto) Trace(0-5/hpf) (Absent) Urine RBC (Auto) 1+(3-5/hpf) A (Absent) Ur Squamous Epith Cells Present A (Absent) Urine Bacteria 1+ A (Absent) Urine Glucose Negative (Negative) Urine Ascorbic Acid * A (Negative) Result Diagrams: 01/15/18 18:20 01/15/18 18:20 Lab Statement: Any lab studies that have been ordered have been reviewed, and results considered in the medical decision making process. - Radiology CXR Xray Interpretation: Positive (See Comments) Radiology Interpretation Completed By: Radiologist - Hiatal hernia. No definite pneumonia. ED physician has reviewed this imaging report and agrees. Abdomen XRay Xray Interpretation: Positive (See Comments) Radiology Interpretation Completed By: Radiologist - Hiatal hernia. No definite obstructive pattern is noted. ED physician has reviewed this imaging report and agrees. - CT Chest CT Interpretation: Positive (See Comments) CT Interpretation Completed By: Radiologist - There is a large fixed hiatal hernia. Moderately dilated esophagus. Likely scarring in both lung apices. ED physician has reviewed this imaging report and agrees. Abdominal Pain Fem Course/Dx - Course Course Of Treatment: No vomiting. Her pain seems to be improving. The pt was started on IV fluid. No anasthesia required. - Diagnoses Provider Diagnoses: Upper GI bleed, Pancreatitis, Hiatal hernia - Provider Notifications Discussed Care Of Patient With: Mireya Witt Time Discussed With Above Provider: 19:22 Instructed by Provider To: Admit As Inpatient Discharge - Discharge Plan Condition: Fair Disposition: SUBSTANCE ABUSE REHAB Discharge Disposition Comment: admitted The documentation as recorded by the Duarte foster Stephanie accurately reflects the service I personally performed and the decisions made by me, Elkin Aaron MD.
[2018-01-15] MEDS: QUEtiapine TAB* 25 MG PO SCH (22:12)
[2018-01-15] MEDS: NS 0.9% 1000 ML* 1,000 ML IV SCH (22:12)
--- NOTE | 2018-01-16 02:01 | HP ---
CC: Dr. Urias * HISTORY AND PHYSICAL: DATE OF ADMISSION: 01/15/18 PRIMARY CARE PROVIDER: Dr. Urias. CHIEF COMPLAINT: Bloody vomit. HISTORY OF PRESENT ILLNESS: Ms. Wbeb is an 87-year-old female with a history of Alzheimer's dementia, osteopenia, and hyperlipidemia, who presented to the emergency room after having 3 to 4 episodes of vomit with small amounts of blood within it. The patient was also complaining of stomach ache. Patient herself is a poor historian. She is able to tell me that she has had abdominal pain; however, she is unable to elaborate any further. The patient's daughter is able to tell me that for a while her mom has been having a difficult time swallowing. She will note from time to time that her mom will swallow something and then have to burp or retch for a little while to bring up some mucus and then she can pass whatever she had swallowed. The patient does admit to nausea currently. PAST MEDICAL HISTORY: 1. Alzheimer's dementia. 2. Osteopenia. 3. Hyperlipidemia. 4. History of hyponatremia. PAST SURGICAL HISTORY: 1. Hysterectomy. 2. Lumpectomy for breast cancer, unknown which side. 3. Left cataract extraction. MEDICATIONS: 1. Calcium carbonate 500 mg p.o. q.8 hours p.r.n. indigestion. 2. EpiPen IM daily p.r.n. allergic reaction. 3. Seroquel 50 mg p.o. b.i.d. 4. Bengay Ultra Strength 1application every 4 hours as needed for back pain. 5. Senna - docusate 2 tabs p.o. q.h.s. 6. Remeron 22.5 mg p.o. q.h.s. 7. MiraLAX 17 g p.o. every other day p.r.n. constipation. 8. Ferrous sulfate 325 mg p.o. daily. ALLERGIES: PENICILLIN and BEE VENOM. FAMILY HISTORY: Unobtainable. SOCIAL HISTORY: The patient does not smoke. She does not drink alcohol. She lives at [place] with her . She has 3 daughters. Her daughter, Abdullahi De Leon and Alyssa Brennan are her healthcare proxies. REVIEW OF SYSTEMS: There are no reports of fevers, chills, or anorexia. In fact, the patient's daughter states that she has been putting on weight over the last several months. She denies chest pain. She denies shortness of breath. She admits to the nausea, vomiting, and abdominal pain. There are no other complaints or positive review of systems. PHYSICAL EXAMINATION GENERAL: Patient is a well developed, elderly female, sitting up in the stretcher, in no acute distress. VITAL SIGNS: Blood pressure 120/69, pulse 74, respirations 15, temp 99.2, O2 sat 99% on room air. HEENT: Pupils are equal and round. There is evidence of left cataract extraction. Extraocular muscles intact. Oropharynx clear. Oral mucosa is moist. There is no submandibular, cervical, or supraclavicular adenopathy. Thyroid is not enlarged. No thyroid nodule is noted. PULMONARY: Lungs are clear to auscultation bilaterally. CARDIAC: Normal S1, S2. Regular rate and rhythm. There are no murmurs. There is no lower extremity edema. ABDOMEN: Bowel sounds present. Abdomen is soft. She is mildly distended in the upper abdomen. It is tympanic to percussion. She does not appear to be in any pain with palpation. MUSCULOSKELETAL: There is no clubbing or cyanosis of the digits. There is full active range of motion of all 4 extremities. NEUROLOGIC: Cranial nerves II through XII are grossly intact. Sensation is intact to light touch throughout. Strength is 5/5 and symmetric both upper and lower extremities bilaterally. PSYCH: The patient is alert. She is not oriented. SKIN: Warm and dry. There are no rashes. DIAGNOSTIC STUDIES/LAB DATA: WBC 9.8, hemoglobin 11.0, hematocrit 33, platelets 273. Sodium 138, potassium 4.0, chloride 104, CO2 28, BUN 22, creatinine 1.0, glucose 141, calcium 9.5. Bilirubin 0.3, AST 15, ALT 10, alk phos 53, albumin 4.1, lipase 185. Urinalysis revealed specific gravity of 1.011 , 1+ leukocyte esterase, 1+ bacteria, trace wbc's. Abdominal x-ray reveals a hiatal hernia, no obstructive pattern is noted. Chest x- ray reveals hiatal hernia and CT chest reveals large fixed hiatal hernia and moderately dilated esophagus. ASSESSMENT AND PLAN: Ms. Webb is an 87-year-old female with a history of Alzheimer's dementia and hyper-lipidemia, who presents to the emergency room with complaints of bloody vomitus 3 to 4 times on the day of admission. 1. Bloody vomit. The differential diagnosis would include Lisa-Reddy tear versus possible Wilmer's erosions given her large hiatal hernia versus peptic ulcer disease. The patient will have Protonix 80 mg IV x1 now, followed by 40 mg IV daily. She will be n.p.o. in anticipation of EGD tomorrow morning. A followup hemoglobin will be obtained tomorrow morning. If she has any further episodes of bloody vomit overnight, I will check her hemoglobin at that point. 2. Dilated esophagus. As above, the patient will be n.p.o. for EGD tomorrow. Question of possible achalasia as the cause of her dilated esophagus. We will await the results of the EGD. 3. Anemia. The patient is on iron supplementation at baseline. Her hemoglobin is within her usual range of how it has been for the last couple of years. 4. Elevated lipase. The patient's lipase is mildly elevated at 185. She is complaining of some mild abdominal pain. She will be n.p.o. and received IV fluid hydration. A repeat lipase level will be obtained tomorrow morning. I am now overtly convinced the patient has pancreatitis at this point. 5. DVT prophylaxis: According to the Adult Thrombosis Prophylaxis Risk Factor Assessment Guide, the patient has a total risk factor score of 4 making her high risk. SCDs alone will be utilized as DVT prophylaxis given the bloody vomit today. 6. Code status is DNR. The MOLST form is filled out. TIME SPENT: Sixty-five minutes was spent admitting this patient. [id number]/[facility] #: [id number] MAXIM
[2018-01-16 06:34] LABS: Hematocrit 27 % (35-47); Hemoglobin 9.3 g/dl (12.0-16.0); Mean Corpuscular HGB Conc 34 g/dl (31-36); Mean Corpuscular Hemoglobin 30 pg (27-31); Mean Corpuscular Volume 88 fL (80-97); Mean Platelet Volume 7 um3 (7.4-10.4); Platelet Count 223 10^3/ul (150-450); Red Blood Count 3.11 10^6/ul (4.0-5.4); Red Cell Distribution Width 16 % (10.5-15); White Blood Count 5.8 10^3/ul (3.5-10.8)
[2018-01-16 07:59] LABS: EGFR Non-African American 67.8 (>60)
[2018-01-16] MEDS ORDERED: Ziprasidone IM INJ* 20 MG/ML VIAL IM ONE (08:05)
[2018-01-16] MEDS: Pantoprazole IV* 40 MG IV SCH (08:36)
--- NOTE | 2018-01-16 08:55 | PN ---
Subjective Date of Service: 01/16/18 Interval History: Patient offers no c/o. Objective Active Medications: Sodium Chloride (Ns 0.9% 1000 Ml*) 1,000 mls @ 75 mls/hr IV PER RATE COUNT INCLUDES THE [facility] Last Admin: 01/15/18 22:12 Dose: 75 mls/hr Ondansetron HCl (Zofran Inj*) 4 mg IV Q6H PRN PRN Reason: NAUSEA Pantoprazole Sodium (Protonix Iv*) 40 mg IV DAILY COUNT INCLUDES THE [facility] Last Admin: 01/16/18 08:36 Dose: 40 mg Quetiapine Fumarate (Seroquel Tab*) 50 mg PO BID COUNT INCLUDES THE [facility] Last Admin: 01/15/18 22:12 Dose: 50 mg Vital Signs - 8 hr 01/16/18 03:10 Temperature 98.0 F Pulse Rate 83 Respiratory 20 Rate Blood Pressure 143/78 (mmHg) O2 Sat by Pulse 91 Oximetry Oxygen Devices in Use Now: None Appearance: Somnolent but arouses to full alertness with voice (after IM ziprasidone 10 mg). Partly up in bed. Neutral affect. Looks comfortable. Eyes: No Scleral Icterus Respiratory: Symmetrical Chest Expansion and Respiratory Effort, Clear to Auscultation, Clear to Percussion Cardiovascular: NL Sounds; No Murmurs; No JVD, RRR, No Edema, - Abdominal: NL Sounds; No Tenderness; No Distention, No Hepatosplenomegaly, - Extremities: No Edema, No Clubbing, Cyanosis, - Skin: No Rash or Ulcers, No Nodules or Sclerosis, - Neurological: - - Able to state her full name, can't answer other questions. Combative before ziprasidone, mildly resists exam after but smiles socially. No tremor. Result Diagrams: 01/16/18 06:07 01/16/18 06:07 Additional Lab and Data: Lab Results 01/15/18 01/15/18 01/15/18 Range/Units 18:19 18:20 18:20 WBC 9.8 (3.5-10.8) 10^3/ul RBC 3.75 L (4.0-5.4) 10^6/ul Hgb 11.0 L (12.0-16.0) g/dl Hct 33 L (35-47) % MCV 89 (80-97) fL MCH 29 (27-31) pg MCHC 33 (31-36) g/dl RDW 16 H (10.5-15) % Plt Count 273 (150-450) 10^3/ul MPV 7 L (7.4-10.4) um3 Neut % (Auto) 74.3 (38-83) % Lymph % (Auto) 18.2 L (25-47) % [place] % (Auto) 6.7 (0-7) % Eos % (Auto) 0.2 (0-6) % Baso % (Auto) 0.6 (0-2) % Absolute Neuts (auto) 7.2 (1.5-7.7) 10^3/ul Absolute Lymphs (auto) 1.8 (1.0-4.8) 10^3/ul Absolute Monos (auto) 0.7 (0-0.8) 10^3/ul Absolute Eos (auto) 0 (0-0.6) 10^3/ul Absolute Basos (auto) 0.1 (0-0.2) 10^3/ul Absolute Nucleated RBC 0 10^3/ul Nucleated RBC % 0.1 Sodium 138 (133-145) mmol/L Potassium 4.0 (3.5-5.0) mmol/L Chloride 104 (101-111) mmol/L Carbon Dioxide 28 (22-32) mmol/L Anion Gap 6 (2-11) mmol/L BUN 22 (6-24) mg/dL Creatinine 1.00 H (0.51-0.95) mg/dL Est GFR ( Amer) 67.4 (>60) Est GFR (Non-Af Amer) 52.4 (>60) BUN/Creatinine Ratio 22.0 H (8-20) Glucose 141 H (70-100) mg/dL Calcium 9.5 (8.6-10.3) mg/dL Total Bilirubin 0.30 (0.2-1.0) mg/dL AST 15 (13-39) U/L ALT 10 (7-52) U/L Alkaline Phosphatase 53 (34-104) U/L Total Protein 6.9 (6.4-8.9) g/dL Albumin 4.1 (3.2-5.2) g/dL Globulin 2.8 (2-4) g/dL Albumin/Globulin Ratio 1.5 (1-3) Lipase 185 H (11.0-82.0) U/L Urine Color Yellow Urine Appearance Clear Urine pH 6.0 (5-9) Ur Specific [place] 1.011 (1.010-1.030) Urine Protein Negative (Negative) Urine Ketones Trace A (Negative) Urine Blood Negative (Negative) Urine Nitrate Negative (Negative) Urine Bilirubin Negative (Negative) Urine Urobilinogen Negative (Negative) Ur Leukocyte Esterase 1+ A (Negative) Urine WBC (Auto) Trace(0-5/hpf) (Absent) Urine RBC (Auto) 1+(3-5/hpf) A (Absent) Ur Squamous Epith Cells Present A (Absent) Urine Bacteria 1+ A (Absent) Urine Glucose Negative (Negative) Urine Ascorbic Acid * A (Negative) Microbiology and Other Data: Microbiology 01/15/18 22:30 Nasal Screen MRSA (PCR)(CARL) - Final Nasal Mrsa Not Detected Assess/Plan/Problems-Billing Assessment: - Patient Problems (1) UGI bleed Current Visit: Yes Status: Acute Code(s): K92.2 - GASTROINTESTINAL HEMORRHAGE, UNSPECIFIED SNOMED Code(s): 71531096 Comment: Small volume blood loss. EGD 3/7 PM. Continue IV pantoprazole infusion, fluids. (2) Dementia with behavioral disturbance Current Visit: Yes Status: Acute Code(s): F03.91 - UNSPECIFIED DEMENTIA WITH BEHAVIORAL DISTURBANCE SNOMED Code(s): 7680943564099 Comment: Advanced dementia. Behvior responded well to IM ziprasidone, consider using it po. Message left for daughter Danyelle Mejia [phone] to call me back to discuss end of life care.
[2018-01-16] MEDS: NS 0.9% 1000 ML* 1,000 ML IV SCH (13:02)
[2018-01-16] MEDS ORDERED: Ziprasidone IM INJ* 20 MG/ML VIAL IM PRN (13:37)
[2018-01-16] MEDS ORDERED: D5W 1/2 NS KCl 20 Meq 1000 ML* 1,000 ML IV SCH (17:00)
[2018-01-16] MEDS: QUEtiapine TAB* 25 MG PO SCH ×3 (17:19→20:04)
--- NOTE | 2018-01-16 19:53 | CONS ---
CC: Dr. Mireya Witt * GASTROENTEROLOGY CONSULTATION: DATE OF CONSULT: 01/16/18 REFERRING PHYSICIAN: Dr. Mireya Witt HISTORY OF PRESENT ILLNESS: Thank you for asking me to see Ms. Webb. As you know, she is an 87-year-old female with a history of Alzheimer dementia, who presented to the emergency room yesterday after having several episodes of vomiting, some with small amounts of blood in it. The patient also described stomach ache. The patient is unable to provide any further history due to her Alzheimer's. She has been according to the nurses somewhat combative. She denies any abdominal pain at this time. The patient's admission hematocrit was 33, down to 27 today. There have been no further signs of any active bleeding or vomiting. The patient did undergo a CT scan of the chest, which did reveal a dilated esophagus and large hiatal hernia, which is fixed. I am asked to see the patient regarding performing an upper endoscopy. PAST MEDICAL HISTORY: Significant for Alzheimer's dementia, hyperlipidemia, hyponatremia, abdominal hysterectomy, lumpectomy. MEDICATIONS: At home include: 1. Calcium carbonate. 2. Seroquel. 3. Senna. 4. Remeron. 5. MiraLAX. 6. Iron. ALLERGIES: To PENICILLIN. FAMILY HISTORY: Unobtainable. SOCIAL HISTORY: The patient lives at [place] as does her . She does have 3 daughters. I have spoken to one of them. REVIEW OF SYSTEMS: Unobtainable due to the patient's dementia. PHYSICAL EXAM: Ms. Webb is an 87-year-old female. Temperature is 98, heart rate 83, blood pressure 143/78. HEENT Exam: There is no scleral icterus. Heart is regular rate and rhythm. Lungs are clear. Abdomen is soft. There does not appear to be any tenderness. Bowel sounds are present. There is no significant distention. Skin is warm and dry without rash. DIAGNOSTIC STUDIES/LAB DATA: Pertinent laboratory studies include a white blood count of 5.8, hematocrit of 27, BUN of 15, creatinine of 0.8. Normal liver function tests. IMPRESSION: Ms. Webb presents with several episodes of vomiting yesterday, some blood tinged. She does have what appears to be a dilated esophagus and a fixed large hiatal hernia on CAT scan. She has been commenced on pantoprazole 40 mg daily IV and has been n.p.o. PLAN/RECOMMENDATIONS: Upper endoscopy will take place today. Further recommendations based on the result of that study. [id number]/[facility] #: [id number] [facility] CENTERKris
[2018-01-17 06:02] LABS: ABS Basophils 0.1 10^3/ul (0-0.2); ABS Eosinophils 0.2 10^3/ul (0-0.6); ABS Lymphocytes 2.3 10^3/ul (1.0-4.8); ABS Monocytes 0.6 10^3/ul (0-0.8); ABS Neutrophils 3.1 10^3/ul (1.5-7.7); ABS Nucleated RBC 0 10^3/ul; Eosinophil % 2.9 % (0-6); Hematocrit 32 % (35-47); Hemoglobin 10.8 g/dl (12.0-16.0); Lymphocyte % 36.5 % (25-47); Mean Corpuscular HGB Conc 34 g/dl (31-36); Mean Corpuscular Hemoglobin 30 pg (27-31); Mean Corpuscular Volume 88 fL (80-97); Mean Platelet Volume 7 um3 (7.4-10.4); Nucleated Red Blood Cells % 0.1; Platelet Count 249 10^3/ul (150-450); Red Blood Count 3.62 10^6/ul (4.0-5.4); Red Cell Distribution Width 16 % (10.5-15); White Blood Count 6.3 10^3/ul (3.5-10.8)
[2018-01-17 06:31] LABS: INR 0.95 (0.77-1.02)
--- NOTE | 2018-01-17 08:15 | PN ---
Progress Note - Progress Note Date of Service: 01/17/18 Note: Time spent on discharge 40 minutes.
[2018-01-17] MEDS: Pantoprazole IV* 40 MG IV SCH (09:24)
[2018-01-17] MEDS ORDERED: Omeprazole CAP* 20 MG PO SCH (09:30)
[2018-01-17] MEDS: Acetaminophen TAB* 325 MG PO PRN ×2 (10:00→13:57)
[2018-01-17] MEDS: QUEtiapine TAB* 25 MG PO SCH (10:01)
[2018-01-17 10:30] VITALS: BP 144/46
--- NOTE | 2018-01-17 13:22 | CONSULT ---
Palliative / Hospice Consult Ordering Provider: Mireya Witt - Subjective Code Status: DNR Advance Directives Location: In Chart [facility] Part A Completed: Yes - DNR Date: 01/15/18 - History or Present Illness History or Present Illness: This 87 year old woman with moderate Alzheimer's dementia, living in [facility] , was admitted after having emesis that contained some blood. She has a fixed hiatal hernia and a moderately dilated esophagus. She has had some difficulty with swallowing recently. She otherwise has a PMH of only osteopenia and HLD. There is no report of weight loss, nd her weight yesterday was recorded once as 165 lb. and once as 140 lb. Her Hb was 11.0 on 01/15/18 and is 10.8 today. The plan [facility] was to perform an EGD, but the patient's family decided to forego this procedure, as they would not want to have any aggressive intervention anyway. She has been placed on PPI Rx which should be continued for several months. The family elected DNR status. Lab Values: Abnormal Lab Results 01/17/18 01/17/18 05:42 05:42 WBC 6.3 RBC 3.62 L Hgb 10.8 L Hct 32 L MCV 88 MCH 30 MCHC 34 RDW 16 H Plt Count 249 MPV 7 L Neut % (Auto) 49.8 Lymph % (Auto) 36.5 [place] % (Auto) 9.9 H Eos % (Auto) 2.9 Baso % (Auto) 0.9 Absolute Neuts (auto) 3.1 Absolute Lymphs (auto) 2.3 Absolute Monos (auto) 0.6 Absolute Eos (auto) 0.2 Absolute Basos (auto) 0.1 Absolute Nucleated RBC 0 Nucleated RBC % 0.1 INR (Anticoag Therapy) 0.95 Laboratory Last Values WBC 6.3 10^3/ul (3.5-10.8) 01/17/18 05:42 RBC 3.62 10^6/ul (4.0-5.4) L 01/17/18 05:42 Hgb 10.8 g/dl (12.0-16.0) L 01/17/18 05:42 Hct 32 % (35-47) L 01/17/18 05:42 MCV 88 fL (80-97) 01/17/18 05:42 MCH 30 pg (27-31) 01/17/18 05:42 MCHC 34 g/dl (31-36) 01/17/18 05:42 RDW 16 % (10.5-15) H 01/17/18 05:42 Plt Count 249 10^3/ul (150-450) 01/17/18 05:42 MPV 7 um3 (7.4-10.4) L 01/17/18 05:42 Neut % (Auto) 49.8 % (38-83) 01/17/18 05:42 Lymph % (Auto) 36.5 % (25-47) 01/17/18 05:42 [place] % (Auto) 9.9 % (0-7) H 01/17/18 05:42 Eos % (Auto) 2.9 % (0-6) 01/17/18 05:42 Baso % (Auto) 0.9 % (0-2) 01/17/18 05:42 Absolute Neuts (auto) 3.1 10^3/ul (1.5-7.7) 01/17/18 05:42 Absolute Lymphs (auto) 2.3 10^3/ul (1.0-4.8) 01/17/18 05:42 Absolute Monos (auto) 0.6 10^3/ul (0-0.8) 01/17/18 05:42 Absolute Eos (auto) 0.2 10^3/ul (0-0.6) 01/17/18 05:42 Absolute Basos (auto) 0.1 10^3/ul (0-0.2) 01/17/18 05:42 Absolute Nucleated RBC 0 10^3/ul 01/17/18 05:42 Nucleated RBC % 0.1 01/17/18 05:42 INR (Anticoag Therapy) 0.95 (0.77-1.02) 01/17/18 05:42 Sodium 138 mmol/L (133-145) 01/16/18 06:07 Potassium 4.1 mmol/L (3.5-5.0) 01/16/18 06:07 Chloride 108 mmol/L (101-111) 01/16/18 06:07 Carbon Dioxide 25 mmol/L (22-32) 01/16/18 06:07 Anion Gap 5 mmol/L (2-11) 01/16/18 06:07 BUN 15 mg/dL (6-24) 01/16/18 06:07 Creatinine 0.80 mg/dL (0.51-0.95) 01/16/18 06:07 Est GFR ( Amer) 87.3 (>60) 01/16/18 06:07 Est GFR (Non-Af Amer) 67.8 (>60) 01/16/18 06:07 BUN/Creatinine Ratio 18.8 (8-20) 01/16/18 06:07 Glucose 99 mg/dL (70-100) 01/16/18 06:07 Calcium 8.9 mg/dL (8.6-10.3) 01/16/18 06:07 Total Bilirubin 0.30 mg/dL (0.2-1.0) 01/15/18 18:20 AST 15 U/L (13-39) 01/15/18 18:20 ALT 10 U/L (7-52) 01/15/18 18:20 Alkaline Phosphatase 53 U/L (34-104) 01/15/18 18:20 Total Protein 6.9 g/dL (6.4-8.9) 01/15/18 18:20 Albumin 4.1 g/dL (3.2-5.2) 01/15/18 18:20 Globulin 2.8 g/dL (2-4) 01/15/18 18:20 Albumin/Globulin Ratio 1.5 (1-3) 01/15/18 18:20 Lipase 31 U/L (11.0-82.0) 01/16/18 06:07 Urine Color Yellow 01/15/18 18:19 Urine Appearance Clear 01/15/18 18:19 Urine pH 6.0 (5-9) 01/15/18 18:19 Ur Specific Rhodes 1.011 (1.010-1.030) 01/15/18 18:19 Urine Protein Negative (Negative) 01/15/18 18: Urine Ketones Trace (Negative) A 01/15/18 18:19 Urine Blood Negative (Negative) 01/15/18 18:19 Urine Nitrate Negative (Negative) 01/15/18 18:19 Urine Bilirubin Negative (Negative) 01/15/18 18:19 Urine Urobilinogen Negative (Negative) 01/15/18 18:19 Ur Leukocyte Esterase 1+ (Negative) A 01/15/18 18:19 Urine WBC (Auto) Trace(0-5/hpf) (Absent) 01/15/18 18:19 Urine RBC (Auto) 1+(3-5/hpf) (Absent) A 01/15/18 18:19 Ur Squamous Epith Cells Present (Absent) A 01/15/18 18:19 Urine Bacteria 1+ (Absent) A 01/15/18 18:19 Urine Glucose Negative (Negative) 01/15/18 18:19 Urine Ascorbic Acid * (Negative) A 01/15/18 18:19 - Objective Active Medications: Acetaminophen (Tylenol Tab*) 650 mg PO Q4H PRN PRN Reason: PAIN Last Admin: 01/17/18 10:00 Dose: 650 mg Omeprazole (Prilosec Cap*) 20 mg PO 0600 [facility] Last Admin: 01/17/18 10:00 Dose: 20 mg Quetiapine Fumarate (Seroquel Tab*) 50 mg PO BID [facility] Last Admin: 01/17/18 10:01 Dose: 50 mg Ziprasidone (Geodon Im Inj*) 10 mg IM Q8H PRN PRN Reason: AGITATION Last Admin: 01/16/18 14:25 Dose: 10 mg Vital Signs: Vital Signs: Temp Pulse Resp BP Pulse Ox 98.2 F 67 17 144/46 92 01/17/18 08:12 01/17/18 08:12 01/17/18 08:12 01/17/18 08:12 01/17/18 08:12 Intake and Output: Intake & Output 01/15/18 01/16/18 01/17/18 01/18/18 06:59 06:59 06:59 06:59 Intake Total 240 0 Balance 240 0 Intake: Oral 240 0 Other: Estimated Void Large # Bowel Movements 0 # Voids 1 ADLs: Meal Record Start: 01/15/18 21: 35 Freq: DAILY@0900,1400,1800 Status: Active Protocol: Document 01/16/18 09:00 [id number] (Rec: 01/16/18 09:19 [id number] MED-M16) Document 01/16/18 14:00 [id number] (Rec: 01/16/18 14:46 [id number] MED-C11) Document 01/17/18 09:00 [id number] (Rec: 01/17/18 09:07 [id number] MED-C11) Intake and Output Start: 01/15/18 21: 35 Freq: DAILY@0600,1400,2200 Status: Active Protocol: Document 01/15/18 22:00 [id number] (Rec: 01/15/18 22:25 [id number] MED-C11) Document 01/16/18 06:00 [id number] (Rec: 01/16/18 06:47 [id number] MED-C11) Document 01/16/18 14:00 [id number] (Rec: 01/16/18 14:46 [id number] MED-C11) Document 01/16/18 22:00 [id number] (Rec: 01/16/18 23:13 [id number] MED-C09) Document 01/17/18 06:00 [id number] (Rec: 01/17/18 06:25 [id number] MED-C11) General Impression: The patient is apleasant, confused woman sitting upright in bed drinking anamaria clement, breaking into song when she tries to speak/answer questions. Head: Symmetrical Eyes: No Scleral Icterus Ears/Nose/Mouth/Throat: NL Teeth, Lips, Gums Neck: NL Appearance and Movements; NL JVP Cardiovascular: NL Sounds; No Murmurs; No JVD, RRR, No Edema Respiratory: Symmetrical Chest Expansion and Respiratory Effort Abdominal: NL Sounds; No Tenderness; No Distention, No Hepatosplenomegaly, - Extremities: No Edema, No Clubbing, Cyanosis, - Neurological: - - Smiles and interacts, but is Ox 1 (self) only. Speech becomes quickly tangential and then garbled. - Assessment Assessment: This patient has a fixed hiatal hernia and some distal esophageal obstruction, possibly due to achalasia or esophageal stricture. She did not have chance hematemesis, but rather some blood-tinged emesis. She may have had a Lisa- Reddy tear, but in any event, the problem seems to have resolved spontaneously with no evidence of hematochezia or melena, and no drop in Hb. The family wishes no intervention, I understand, although they were not present today to speak withme. This decision is reasonable in light of her age and dementia. The patient has no evidence of life-limiting illness at this point and is not a candidate for hospice services. She is being discharged back to [facility] today. Thanks for asking me to see her. - Plan Consult Plan (MU): Palliative - Time On Unit Date of Evaluation: 01/17/18 Hospice Consult Time in: 13:00 Hospice Consult Time Out: 13:25 Hospice Consult Time Total: 25
--- NOTE | 2018-01-17 23:38 | DS ---
CC: Dr. Urias * DISCHARGE SUMMARY: DATE OF ADMISSION: DATE OF DISCHARGE: 01/17/18 HISTORY OF PRESENT ILLNESS: This 87-year-old woman was admitted because of hematemesis. She is a resident of [facility]. The patient was unable to give any history at all. The patient was seen in consultation by Dr. Cain and scheduled for endoscopy. However, the patient was extremely difficult to manage. She was combative. She pulled out her IV. It was felt that she would need moderate sedation to have procedure. The procedure was delayed another day. The family reconsidered and decided they did not want any investigations. I will talk to them about having a palliative care referral at her facility. I do note that the patient was calmed down for few hours with 10 mg of ziprasidone IM. She missed the dose of oral Seroquel, but seemed to do just fine after her evening dose of Seroquel the night before discharge, possibly the dose might need to be titrated up, but I suspect that in her familiar surroundings, with familiar caretakers, she will be less agitated. DISCHARGE DIAGNOSES: 1. Hematemesis. 2. Dementia with behavioral disturbance. DISCHARGE MEDICATIONS: 1. Quetiapine 50 mg b.i.d. 2. Mirtazapine 22.5 mg h.s. 3. Sennosides/docusate 2 at bedtime. 4. Polyethylene glycol 17 g every other p.r.n. 5. Epinephrine 0.3 mg IM p.r.n. 6. Bengay Ultra Strength cream as needed. DISCHARGE DIET: I have put the patient on a regular diet with pureed solids and thin liquids. If she is having trouble with thin liquids, liquids should be thickened. [id number]/[facility] #: [id number] MTDD
== END 2018-01-17 15:00 | DRG 378 ==
LOC: ED 16:06 → MED 20:24 → OBSVTOIN 01-16 16:00
PROVIDERS: ADMIT Hospitalist; ATTEND Internal Medicine
DX: K92.0 Hematemesis (principal); F02.81 Dementia in other diseases classified elsewhere, unspecified severity, with behavioral disturbance; G30.9 Alzheimer's disease, unspecified; D64.9 Anemia, unspecified; K22.2 Esophageal obstruction; E78.5 Hyperlipidemia, unspecified; K22.8 Other specified diseases of esophagus; K44.9 Diaphragmatic hernia without obstruction or gangrene; Z66 Do not resuscitate; R74.8 Abnormal levels of other serum enzymes; M81.0 Age-related osteoporosis without current pathological fracture; M85.80 Other specified disorders of bone density and structure, unspecified site; Z90.710 Acquired absence of both cervix and uterus; Z85.3 Personal history of malignant neoplasm of breast; Z98.42 Cataract extraction status, left eye; Z88.0 Allergy status to penicillin; Z91.030 Bee allergy status
CPT/HCPCS: 36415; 71046; 71250; 74019; 80048; 80053; 81003; 81015; 82272; 83690; 85025; 85027; 85610; 87086; 87641; 96374; 99285; A9270-GY; G0378; J3486

== ENCOUNTER 2018-05-16 10:48 | Inpatient (IN) | payer MEDICARE ==
[2018-05-16] MEDS ORDERED: traMADol TAB* 50 MG PO ONE (11:09)
--- NOTE | 2018-05-16 11:26 | RAD ---
Indication: LEFT ankle deformity post fall today. Comparison: No relevant prior exams available on the [facility] PACS for comparison. Technique: AP and crosstable lateral views LEFT lower leg. AP and crosstable lateral views LEFT ankle Report: Bone density appears decreased throughout. Fracture of the distal metaphysis of the fibula terminating inferiorly at the level of the ankle mortise. No additional fracture evident at the ankle or extending cephalad throughout the lower leg. The ankle mortise remains grossly congruent. Soft tissue swelling most prominent over the lateral malleolus. Peripheral vascular calcifications. IMPRESSION: #. Zeng type B fracture of the lateral malleolus. #. Predisposing generalized decreased bone density. #. No additional fracture evident at the ankle or extending cephalad throughout the lower leg.
--- NOTE | 2018-05-16 11:26 | RAD ---
Indication: LEFT ankle deformity post fall today. Comparison: No relevant prior exams available on the [facility] [place] for [place]. Technique: AP and crosstable lateral views LEFT lower leg. AP and crosstable lateral views LEFT ankle Report: Bone density appears decreased throughout. Fracture of the distal metaphysis of the fibula terminating inferiorly at the level of the ankle mortise. No additional fracture evident at the ankle or extending cephalad throughout the lower leg. The ankle mortise remains grossly congruent. Soft tissue swelling most prominent over the lateral malleolus. Peripheral vascular calcifications. IMPRESSION: #. Zeng type B fracture of the lateral malleolus. #. Predisposing generalized decreased bone density. #. No additional fracture evident at the ankle or extending cephalad throughout the lower leg.
--- NOTE | 2018-05-16 12:21 | ED ---
Lower Extremity - HPI Summary HPI Summary: Patient is an 88-year-old semi-independent female with a history of dementia presenting to the ED from [facility] after a fall with left ankle pain. Due to dementia, history of present illness and ROS are limited. She arrives with aid at bedside. - History of Current Complaint Chief Complaint: EDExtremityLower Stated Complaint: LT ANKLE PAIN Time Seen by Provider: 05/16/18 10:56 Hx Obtained From: Family/Clinical Statistics Manager - aid with patient, EMS Mechanism Of Injury: Fall From A Standing Position, Twisted Onset of Pain: Hours Onset/Duration: Hours Severity Initially: Moderate Severity Currently: Moderate Pain Intensity: 4 Pain Scale Used: 0-10 Numeric Timing: Constant Aggravating Factor(s): Standing, Ambulation Alleviating Factor(s): Rest Able to Bear Weight: No - Risk Factors Gout Risk Factors: Age Over 40 - Allergies/Home Medications Allergies/Adverse Reactions: Allergies Allergy/AdvReac Type Severity Reaction Status Date / Time bee venom protein (honey bee) Allergy Anaphylatic Verified 05/16/18 10:57 Shock haloperidol [From Haldol] Allergy See Comment Verified 05/16/18 10:57 Penicillins Allergy Unknown Verified 05/16/18 10:57 Reaction Details PMH/Surg Hx/FS Hx/Imm Hx Previously Healthy: Yes Endocrine/Hematology History: Denies: Hx Anticoagulant Therapy History: Reports: Hx Kidney Infection - currently on cipro x 1 day, was switched from macrodantin Musculoskeletal History: Reports: Hx Osteoporosis Sensory History: Reports: Hx Contacts or Glasses Denies: Hx Hearing Aid Opthamlomology History: Reports: Hx Contacts or Glasses Neurological History: Reports: Hx Dementia - Alzheimer's - Cancer History Cancer Type, Location and Year: BREAST CA - Surgical History Surgery Procedure, Year, and Place: unable to obtain - Immunization History Hx Pertussis Vaccination: No Immunizations Up to Date: Unable to Obtain/Confirm Infectious Disease History: No Infectious Disease History: Denies: Traveled Outside the [place] in Last 30 Days - Family History Known Family History: Negative: Cardiac Disease, Hypertension - Social History Occupation: Unemployed Lives: Assisted Living Alcohol Use: None Hx Substance Use: No Substance Use Type: Reports: None Hx Tobacco Use: No Smoking Status (MU): Never Smoked Tobacco Review of Systems Constitutional: Negative Negative: Fever, Skin Diaphoresis Negative: Palpitations, Chest Pain Genitourinary: Negative Positive: no symptoms reported, see HPI Positive: Arthralgia - left ankle pain. Negative: Myalgia Skin: Negative Psychological: Normal All Other Systems Reviewed And Are Negative: Yes - abdomen Physical Exam Vital Signs On Initial Exam: Initial Vitals Temp Pulse Resp BP Pulse Ox 98.1 F 91 20 123/71 92 05/16/18 10:50 05/16/18 10:50 05/16/18 10:50 05/16/18 10:50 05/16/18 10:50 Completion Of Physical Exam Limited Due To: Altered Mental Status Appearance: Positive: Well-Appearing Skin: Positive: Skin Color Reflects Adequate Perfusion, Other - no ecchymosis, but swelling to the lateral ankle Head/Face: Positive: Normal Head/Face Inspection Eyes: Positive: EOMI, ORESTES, Conjunctiva Clear Neck: Positive: Supple, No Lymphadenopathy Respiratory/Lung Sounds: Positive: Clear to Auscultation, Breath Sounds Present Cardiovascular: Positive: RRR, Pulses are Symmetrical in both Upper and Lower Extremities Musculoskeletal: Positive: Pain @ - left ankle Neurological: Positive: Speech Normal - dementia Psychiatric: Positive: Affect/Mood Appropriate Diagnostics - Vital Signs Vital Signs Temp Pulse Resp BP Pulse Ox 05/16/18 10:50 98.1 F 91 20 123/71 92 - Laboratory Lab Statement: Any lab studies that have been ordered have been reviewed, and results considered in the medical decision making process. Lower Extremity Course/Dx - Course Course Of Treatment: during the course of treatment, the patient is evaluated for left ankle and left lower extremity pain and deformity after a fall. Dementia at baseline. On physical examination there is swelling without ecchymosis to the left lateral ankle over the lateral malleolus. Deformity is noted. On x-ray: IMPRESSION: #. Zeng type B fracture of the lateral malleolus. #. Predisposing generalized decreased bone density. #. No additional fracture evident at the ankle or extending cephalad throughout the lower. leg. Discussed with aid who spoke with manager administration stating they are unable to take her back to [place] if she is unable to ambulate independently. Posterior surgar tong splint applied using orthoglass. Discussed case with hospitalist who agrees to come see patient and admit. We will then call orthopedics at that time. - Diagnoses Provider Diagnoses: Lateral malleolar fracture Discharge - Sign-Out/Discharge Documenting (check all that apply): Discharge/Admit/Transfer - Discharge Plan Condition: Fair Disposition: ADMITTED TO [facility] Referrals: Dawna Urias MD [Primary Care Provider] - - Billing Disposition and Condition Condition: FAIR Disposition: Admitted to [facility]
[2018-05-16] MEDS ORDERED: Ondansetron INJ* 2 MG/ML VIAL IV PRN (14:35)
[2018-05-16] MEDS ORDERED: Acetaminophen TAB* 325 MG PO PRN (14:35)
[2018-05-16] MEDS ORDERED: Polyethylene Glycol 3350* 17 GM PACKET PO PRN (14:40)
[2018-05-16 15:00] LABS: ABS Basophils 0 10^3/ul (0-0.2); ABS Eosinophils 0 10^3/ul (0-0.6); ABS Lymphocytes 1.4 10^3/ul (1.0-4.8); ABS Monocytes 0.7 10^3/ul (0-0.8); ABS Nucleated RBC 0 10^3/ul; Eosinophil % 0.4 % (0-6); Hematocrit 31 % (35-47); Hemoglobin 10.2 g/dl (12.0-16.0); Mean Corpuscular HGB Conc 33 g/dl (31-36); Mean Corpuscular Hemoglobin 29 pg (27-31); Mean Corpuscular Volume 87 fL (80-97); Mean Platelet Volume 6.9 um3 (7.4-10.4); Nucleated Red Blood Cells % 0; Platelet Count 297 10^3/ul (150-450); Red Blood Count 3.53 10^6/ul (4.00-5.40); Red Cell Distribution Width 14 % (10.5-15); White Blood Count 8.1 10^3/ul (3.5-10.8)
[2018-05-16 15:17] LABS: EGFR Non-African American 46.9 (>60)
[2018-05-16] MEDS: Mirtazapine TAB* 15 MG PO SCH (16:20)
[2018-05-16] MEDS: oxyCODONE TAB* 5 MG TAB PO PRN (16:21)
[2018-05-16] MEDS: LORazepam INJ* 2 MG/ML 1 ML VIAL IV PUSH PRN (17:50)
--- NOTE | 2018-05-16 21:18 | HP ---
CC: Dr. Dawna Urias; Dr. Charlie Dubois* ADMISSION HISTORY AND PHYSICAL: DATE OF ADMISSION: 05/16/18 PRIMARY CARE PROVIDER: Dr. Dawna Urias. MY ATTENDING WHILE IN THE HOSPITAL: Dr. Charlie Dubois* (dictated by DOLLY Reinoso). CHIEF COMPLAINT: Fall, left ankle pain. HISTORY OF PRESENT ILLNESS: Ms. Webb is an 88-year-old female with past medical history significant for advanced dementia and osteopenia, who presents to the emergency department after this morning she was in her normal state of health, was somewhat more distant and did not eat breakfast. The patient was then gotten up in the late morning and was able to be walked to the bathroom; however, as she was walking to the bathroom, she suddenly stopped according to the aide that was with her and made a face, tried to crouch down to apparently sit on the floor and as she was crouching, her ankle inverted and she fell to the ground. The patient immediately had pain. The patient was brought to the emergency department by EMS. The patient had an ankle x-ray, which showed a Zeng type B fracture of the lateral malleolus, generalized decreased bone density, no additional fractures. The patient according to the staff has had no recent episodes of dark or malodorous urine, no diarrhea, no abdominal pain, no other complaints. Besides this morning being somewhat lethargic, no other episodes of acting out of the ordinary. The patient herself is a very poor historian. When asked questions, she will respond, but mainly was gibberish. The patient was splinted in the emergency department, but due to being unable to bear weight on that ankle, due to advanced dementia, and inability to cooperate with crutches or other assistive device, the patient was unable to return to [facility] and necessitated admission to the hospital for pain control and rehab placement. PAST MEDICAL HISTORY: Alzheimer's dementia; osteopenia; hyperlipidemia; GI bleed in 2018 of unknown cause, self-resolved. PAST SURGICAL HISTORY: Hysterectomy, lumpectomy, left cataract excision. MEDICATIONS: At admission: 1. Quetiapine 50 mg p.o. b.i.d. 2. Mirtazapine 22.5 mg p.o. q.p.m. 3. Senna-S 2 tabs p.o. at bedtime. 4. MiraLAX 17 g p.o. every other day as needed. 5. Epinephrine 0.3 mg IM once as needed for allergic reaction. 6. Bengay 1 application topical q.4 hours as needed. ALLERGIES: BEE VENOM, HALOPERIDOL, PENICILLINS. FAMILY HISTORY: Unobtainable. The patient's family is unable to be contacted at this time despite numerous calls. SOCIAL HISTORY: The patient does not smoke. The patient does not drink alcohol. The patient lives at [facility] with her , who also has dementia. The patient has 3 daughters. Her daughters, Abdullahi De Leon and Alyssa Aguilar, are her healthcare proxies, but they were unable to be contacted at this time. The patient is a DNR. Comfort care was discussed with the family last time they were in the hospital, but there is no followup on this available. REVIEW OF SYSTEMS: Unobtainable. PHYSICAL EXAMINATION GENERAL: Ms. Webb is an 88-year-old female, who appears stated age and sitting comfortably in bed, in no acute distress. VITAL SIGNS: At the time of evaluation, temperature 98.1, pulse rate 76, oxygen saturation 90% on room air, blood pressure 115/72. HEENT: Head: Normocephalic, atraumatic. Sclerae anicteric. No conjunctival injection. Nasal mucosa moist. Oral mucosa moist. No pharyngeal erythema, discharge, or exudate. NECK: Supple, nontender. No lymphadenopathy. No carotid bruit auscultated. No JVD. CARDIAC: Regular rate and rhythm. No clicks, murmurs, gallops, or rubs. Pulses are 2+ in bilateral dorsalis pedis, posterior tibial, and radial areas. ABDOMEN: Soft, nontender, nondistended. Bowel sounds present and normoactive in all 4 quadrants. No hepatosplenomegaly. No abdominal bruits auscultated. No hepatojugular reflux. GENITOURINARY: No suprapubic or CVA tenderness. EXTREMITIES: The patient's left ankle is splinted and wrapped in an Lobo bandage. NEURO: Cranial nerves II through XII intact. No focal deficits. Alert and oriented only to self. Not able to assess gait. PSYCHIATRIC: Pleasant and cooperative, though speaking only gibberish. SKIN: Clean, dry, intact. No rash on the visible areas. LABORATORY DATA: Pending. STUDIES DONE WHILE IN THE HOSPITAL: Ankle x-ray from 05/16/18 read as Zeng type B fracture of the lateral malleolus predisposed on generalized decreased bone density, no additional fracture evident at the ankle or extending cephalad throughout the lower leg. Lower extremity x-ray read as the same. ASSESSMENT AND PLAN: Impression: Ms. Webb is an 88-year-old female with past medical history significant for severe Alzheimer's dementia, history of hyponatremia, osteopenia, who presents to the emergency department after a fall associated with bizarre behavior, which is out of the ordinary for the patient. The patient sustained a Zeng type B lateral malleolar fracture and will be admitted to the hospital for pain control and rehab placement. 1. Left lateral malleolus fracture, Zeng type B. The patient has been splinted. This case has been discussed with the orthopedic PA and there is no surgical indication or indication for casting at this time. The patient should follow up as an outpatient for casting at a later date. The patient will be nonweightbearing at this time on her leg. The patient will have Physical Therapy and Occupational Therapy consultations. If the patient is unable to return to her former place of living, the patient will have Social Work consult to assist with finding placement. It has been relayed that the family would prefer [facility]; however, it is unknown if they have made arrangements for this in the future and were unable to be contacted at this time. 2. Abnormal behavior, Alzheimer's disease. The patient has Alzheimer's disease and unable to give any reasonable history. The patient will have a CBC and a BMP drawn to assess for any laboratory abnormalities and the patient will also have urinalysis to assess for occult urinary tract infection, possibly causing her abnormal behavior. Treatment pending laboratory data and possible infection. The patient previously had agitated and violent behavior while in the hospital. Continue quetiapine and Remeron as well as supportive care with frequent reorientation. 3. Osteopenia. The patient is predisposed to fractures. We will defer initiation of bisphosphonate therapy for an outpatient realm. The patient likely does not have a life expectancy where she derives much benefit from these medications. 4. DVT prophylaxis: The patient will be placed on heparin and SCDs due to very high risk of DVT while in the hospital and being on bedrest. 5. FEN: The patient will have a regular unrestricted diet. The patient will not have fluids at this time, may be indicated pending laboratory data. 6. Code status: The patient is a DNR. Family is unable to be contacted to confirm this at this time. 7. Disposition: The patient is admitted inpatient for pain control and evaluation for rehab. TIME SPENT: Approximately 60 minutes was spent on this admission, 30 of which was spent [id number] with the patient obtaining history and physical and discussing treatment plan. This plan was discussed with my attending, Dr. Charlie Dubois, and he is in agreement. DOLLY REINOSO [id number]/[facility] #: [id number] MAXIM
[2018-05-16] MEDS: Morphine VIAL* 4 MG/ML VIAL (1 ml vial) IV PRN (21:23)
[2018-05-16] MEDS: Heparin VIAL(*) 5000 UNITS/ML VIAL (FIVE THOUSAND) SUBCUT SCH (21:24)
[2018-05-16] MEDS: Docusate CAP* 100 MG PO SCH (21:24)
[2018-05-16] MEDS: Senna TAB PO SCH (21:24)
[2018-05-16] MEDS: QUEtiapine TAB* 25 MG PO SCH (21:24)
[2018-05-16] MEDS ORDERED: Iodixanol* (CONTRAST) 320 MG/ML 100 ML SDV IV ONE (22:10)
--- NOTE | 2018-05-16 22:29 | PN ---
Hospitalist Progress Note Date of Service: 05/16/18 Kendall signed out CXR, CTA, and ABG; ABG and CTA still pending along with official reading of CXR, however, on review of CXR, it appears pt has new opacities possibly consolidation. Given desaturation. Will place pt on Levaquin and will await CTA and ABG and review data once available. Cultures ordered.
[2018-05-16] MEDS ORDERED: Levofloxacin 750 MG IVPREMIX(* 750 MG/150 ML BAG IVPB SCH ×2 (23:00)
[2018-05-17] MEDS: Morphine VIAL* 4 MG/ML VIAL (1 ml vial) IV PRN ×4 (02:21→23:10)
[2018-05-17] MEDS: oxyCODONE TAB* 5 MG TAB PO PRN ×2 (04:38→13:10)
[2018-05-17] MEDS: LORazepam INJ* 2 MG/ML 1 ML VIAL IV PUSH PRN ×3 (04:57→19:51)
[2018-05-17] MEDS: Heparin VIAL(*) 5000 UNITS/ML VIAL (FIVE THOUSAND) SUBCUT SCH ×3 (05:25→21:57)
--- NOTE | 2018-05-17 07:07 | RAD ---
INDICATION: Hypoxia. COMPARISON: Comparison is made with a prior chest x-ray study from January 15, 2018. TECHNIQUE: A portable view of the chest was obtained. FINDINGS: The heart is mildly enlarged and unchanged. There appears to be a large hiatal hernia. The lungs are underinflated. There are patchy infiltrates present in the right upper lobe and at both lung bases. There is suggestion of a trace right pleural effusion. IMPRESSION: LOW LUNG VOLUMES, SMALL BILATERAL INFILTRATES AND TRACE RIGHT PLEURAL EFFUSION.
--- NOTE | 2018-05-17 07:20 | RAD ---
INDICATION: Chest pain. Short of breath. Evaluate for pulmonary embolus. COMPARISON: Chest x-ray May 16, 2018; CT chest January 15, 2018 TECHNIQUE: Axial source images were obtained from the thoracic inlet to the hemidiaphragms following administration of [address] angiographic technique was utilized. Coronal and sagittal reconstructed images were acquired. CHEST FINDINGS: Neck/thyroid: The visualized neck to include the thyroid appear normal. Chest wall: There are no acute abnormalities of the bony thorax or chest wall. There are spondylitic changes of the thoracic spine with kyphosis There is no supraclavicular, infraclavicular, or axillary lymphadenopathy. Lungs : There are no acute pulmonary parenchymal masses or or acute infiltrates. There is right upper and left lower lobe scarring. There are emphysematous changes. There is chronic interstitial change. This likely a component of mild interstitial congestion. There are no endobronchial lesions. Cardiomediastinal structures: There is no CT evidence of acute pulmonary embolic disease. The heart is enlarged There is no pericardial effusion. There is no evidence of aortic aneurysm or dissection. There is uncoiling and ectasia of the thoracic aorta with aortic intimal calcifications. There is no mediastinal or hilar adenopathy. The esophagus appears normal. Pleura : There are no pleural-based masses or effusions. Other: There is a large hiatal hernia. IMPRESSION: NO CT EVIDENCE OF ACUTE PULMONARY EMBOLIC DISEASE. CHRONIC LUNG FINDINGS. ATHEROSCLEROTIC CHANGES WITH CARDIOMEGALY AND SUSPECTED MILD PULMONARY VENOUS CONGESTION. LARGE HIATAL HERNIA.
[2018-05-17] MEDS: cefTRIAXone(*) 1 GM in NS 0.9% 50 ML* 50 ML IVPB SCH (08:25)
[2018-05-17 08:30] LABS: Urine Appearance Turbid; Urine Blood Negative (Negative); Urine Color Yellow; Urine Ketones Negative (Negative); Urine Protein 1+(30 mg/dL) (Negative); Urine Red Blood Cell 3+(>10/hpf) (Absent); Urine Specific Gravity 1.029 (1.010-1.030); Urine Urobilinogen Negative (Negative); Urine White Blood Cell 3+(>20/hpf) (Absent)
[2018-05-17] MEDS: QUEtiapine TAB* 25 MG PO SCH ×2 (08:37→19:51)
[2018-05-17 08:45] LABS: ABS Basophils 0.1 10^3/ul (0-0.2); ABS Eosinophils 0.2 10^3/ul (0-0.6); ABS Lymphocytes 1.4 10^3/ul (1.0-4.8); ABS Neutrophils 5.5 10^3/ul (1.5-7.7); ABS Nucleated RBC 0 10^3/ul; Eosinophil % 2.2 % (0-6); Hematocrit 27 % (35-47); Hemoglobin 9.2 g/dl (12.0-16.0); Lymphocyte % 16.9 % (25-47); Mean Corpuscular HGB Conc 34 g/dl (31-36); Mean Corpuscular Hemoglobin 29 pg (27-31); Mean Corpuscular Volume 86 fL (80-97); Mean Platelet Volume 7.1 um3 (7.4-10.4); Nucleated Red Blood Cells % 0; Platelet Count 262 10^3/ul (150-450); Red Blood Count 3.15 10^6/ul (4.00-5.40); Red Cell Distribution Width 14 % (10.5-15); White Blood Count 8.1 10^3/ul (3.5-10.8)
[2018-05-17] MEDS ORDERED: DOXYcycline IV* 100 MG in NS 0.9% 250 ML* 250 ML IVPB SCH (09:00)
[2018-05-17 09:01] LABS: EGFR Non-African American 38.7 (>60)
[2018-05-17] MEDS: DOXYcycline IV* 100 MG in NS 0.9% 250 ML* 250 ML IVPB SCH ×2 (10:43→23:15)
--- NOTE | 2018-05-17 13:44 | PN ---
Subjective Date of Service: 05/17/18 Interval History: Patient had an episode of hypoxia and fevers overnight. CXR shows possible consolidation or interstitial pattern. CTA negative. Patient very agitated intermittently, sleeping at other times. Occasional grimacing. Unable to give ROS. Family History: Unchanged from Admission Social History: Unchanged from Admission Past Medical History: Unchanged from Admission Objective Active Medications: Acetaminophen (Tylenol Tab*) 650 mg PO Q6H PRN PRN Reason: FEVER/PAIN Last Admin: 05/17/18 10:45 Dose: 650 mg Docusate Sodium (Colace Cap*) 100 mg PO BEDTIME [facility] Last Admin: 05/16/18 21:24 Dose: Not Given Heparin Sodium (Porcine) (Heparin Vial(*)) 5,000 units SUBCUT Q8HR [facility] Last Admin: 05/17/18 13:10 Dose: 5,000 units Ceftriaxone Sodium 1 gm/ (Sodium Chloride) 50 mls @ 200 mls/hr IVPB Q24H [facility] Last Admin: 05/17/18 08:25 Dose: 200 mls/hr Lactated Ringer's (Lactated Ringers 1000 Ml Bag*) 1,000 mls @ 75 mls/hr IV PER RATE [facility] Last Admin: 05/17/18 08:25 Dose: 75 mls/hr Doxycycline Hyclate 100 mg/ (Sodium Chloride) 250 mls @ 250 mls/hr IVPB 1030, 2230 [facility] Last Admin: 05/17/18 10:43 Dose: 250 mls/hr Lorazepam (Ativan Inj*) 0.5 mg IV PUSH Q4H PRN PRN Reason: AGITATION Mirtazapine (Remeron Tab*) 22.5 mg PO QPM [facility] Last Admin: 05/16/18 16:20 Dose: 22.5 mg Morphine Sulfate (Morphine Vial*) 1 mg IV Q4H PRN PRN Reason: PAIN - MILD Last Admin: 05/17/18 13:26 Dose: 1 mg Ondansetron HCl (Zofran Inj*) 4 mg IV Q6H PRN PRN Reason: NAUSEA Oxycodone HCl (Roxycodone Tab*) 2.5 mg PO Q6H PRN PRN Reason: PAIN Polyethylene Glycol/Electrolytes (Miralax*) 17 gm PO EVERY OTHER DAY PRN PRN Reason: CONSTIPATION Quetiapine Fumarate (Seroquel Tab*) 50 mg PO BID [facility] Last Admin: 05/17/18 08:37 Dose: Not Given Senna (Senokot Tab*) 2 tab PO BEDTIME [facility] Last Admin: 05/16/18 21:24 Dose: Not Given Vital Signs - 8 hr 05/17/18 05/17/18 05/17/18 07:12 07:29 10:09 Temperature 97.6 F Pulse Rate 76 Respiratory 14 18 22 Rate Blood Pressure 90/51 (mmHg) O2 Sat by Pulse 100 Oximetry 05/17/18 05/17/18 05/17/18 11:23 11:30 13:26 Temperature 97.4 F Pulse Rate 38 78 Respiratory 20 20 Rate Blood Pressure 109/60 (mmHg) O2 Sat by Pulse 89 96 Oximetry Oxygen Devices in Use Now: OxyMask Appearance: Patient is an 88yo female who appears stated age and is sitting in the bed in NAD. Eyes: No Scleral Icterus, PERRLA Ears/Nose/Mouth/Throat: NL Teeth, Lips, Gums, Clear Oropharnyx, Mucous Membranes Moist Neck: NL Appearance and Movements; NL JVP, Trachea Midline Respiratory: Symmetrical Chest Expansion and Respiratory Effort, - - Inspiratory crackles in B/L Lower lobes. Cardiovascular: NL Sounds; No Murmurs; No JVD, RRR, No Edema Abdominal: NL Sounds; No Tenderness; No Distention, No Hepatosplenomegaly Lymphatic: No Cervical Adenopathy Extremities: No Edema, No Clubbing, Cyanosis Skin: No Rash or Ulcers, No Nodules or Sclerosis Neurological: NL Sensation, NL Muscle Strength and Tone Result Diagrams: 05/17/18 08:24 05/17/18 08:24 Assess/Plan/Problems-Billing Assessment: Patient is an 88yo female with a PMH for dementia, History of GI bleed, Osteopenia who is here with a lateral malleolus fracture of her left ankle. Patient has been splinted. Overnight patient developed hypoxia and had radiographic findings consistent with pneumonia as well as a positive urinalysis. - Patient Problems (1) Hypoxia Current Visit: Yes Status: Acute Code(s): R09.02 - HYPOXEMIA SNOMED Code(s ): 361709510 Comment: Developed sudden and profound hypoxia overnight. CXR consistent with possible pneumonia. Was feeling somewhat lethargic on day of admission. Empirically treat for CAP. Wean oxygen. Sedation possibly contributed. (2) Fracture of left ankle, lateral malleolus Current Visit: Yes Status: Acute Code(s): S82.62XA - DISP FX OF LATERAL MALLEOLUS OF LEFT FIBULA, INIT SNOMED Code(s): 730289693 Comment: Splinted. Will need casting on Sunday through orthopedics if still here. Will need rehab while casted. (3) Fever Current Visit: Yes Status: Acute Code(s): R50.9 - FEVER, UNSPECIFIED SNOMED Code(s): 498289977 Comment: Tmax overnight 100.4. Likely due to pneumonia. Also possible UTI. On Cetriaxone and Azithromycin. CUrrently afebrile. Blood culture and urine culture pending. (4) Dementia with behavioral disturbance Current Visit: No Status: Acute Code(s): F03.91 - UNSPECIFIED DEMENTIA WITH BEHAVIORAL DISTURBANCE SNOMED Code(s): 1870898960534 Comment: Continue Seroquel and ativan. Intermittently agitated. Supportive care. (5) DVT prophylaxis Current Visit: Yes Status: Acute Code(s): [id number] - SNOMED Code(s): 280676204 Comment: Heparin SubQ. (6) DNR (do not resuscitate) Current Visit: Yes Status: Acute Status and Disposition: Inpatient, awaiting placement.
[2018-05-17] MEDS ORDERED: Albuterol 2.5 MG/3 ML NEB.SOL* (0.083%) INH PRN (15:55)
[2018-05-17] MEDS: Mirtazapine TAB* 15 MG PO SCH (17:42)
[2018-05-17] MEDS: Senna TAB PO SCH (19:51)
[2018-05-17] MEDS: Docusate CAP* 100 MG PO SCH (20:05)
[2018-05-18] MEDS: LORazepam INJ* 2 MG/ML 1 ML VIAL IV PUSH PRN ×2 (03:53→19:30)
[2018-05-18] MEDS: Heparin VIAL(*) 5000 UNITS/ML VIAL (FIVE THOUSAND) SUBCUT SCH ×3 (05:40→22:44)
[2018-05-18] MEDS: Morphine VIAL* 4 MG/ML VIAL (1 ml vial) IV PRN ×2 (05:44→10:01)
[2018-05-18 07:23] LABS: ABS Basophils 0.1 10^3/ul (0-0.2); ABS Eosinophils 0.3 10^3/ul (0-0.6); ABS Lymphocytes 1.9 10^3/ul (1.0-4.8); ABS Monocytes 0.9 10^3/ul (0-0.8); ABS Nucleated RBC 0 10^3/ul; Eosinophil % 3.5 % (0-6); Hematocrit 24 % (35-47); Lymphocyte % 27.1 % (25-47); Mean Corpuscular HGB Conc 34 g/dl (31-36); Mean Corpuscular Hemoglobin 29 pg (27-31); Mean Corpuscular Volume 87 fL (80-97); Mean Platelet Volume 7.2 um3 (7.4-10.4); Nucleated Red Blood Cells % 0; Platelet Count 217 10^3/ul (150-450); Red Blood Count 2.74 10^6/ul (4.00-5.40); Red Cell Distribution Width 14 % (10.5-15); White Blood Count 7.2 10^3/ul (3.5-10.8)
[2018-05-18] MEDS: oxyCODONE TAB* 5 MG TAB PO PRN ×3 (07:37→21:26)
[2018-05-18] MEDS: QUEtiapine TAB* 25 MG PO SCH ×2 (07:38→21:36)
[2018-05-18 07:39] LABS: EGFR Non-African American 48.9 (>60)
[2018-05-18] MEDS: cefTRIAXone(*) 1 GM in NS 0.9% 50 ML* 50 ML IVPB SCH (07:39)
--- NOTE | 2018-05-18 08:37 | PN ---
Subjective Date of Service: 05/18/18 Interval History: Patient seen and examined at bedside. Pt is lethargic and resting in bed and appears to be comfortable. Pt received medications prior to my arrival. Unable to give review of symptoms. Per staff at [place] Pt "moans" at baseline. Family History: Unchanged from Admission Social History: Unchanged from Admission Past Medical History: Unchanged from Admission Objective Active Medications: Acetaminophen (Tylenol Tab*) 650 mg PO Q6H PRN Reason: FEVER/PAIN Albuterol (Ventolin 2.5 Mg/3 Ml Neb.[place]ena*) 2.5 mg INH Q4H PRN Reason: SOB/ WHEEZING Docusate Sodium (Colace Cap*) 100 mg PO BEDTIME [facility] Heparin Sodium (Porcine) (Heparin Vial(*)) 5,000 units SUBCUT Q8HR [facility] Ceftriaxone Sodium 1 gm/ (Sodium Chloride) 50 mls @ 200 mls/hr IVPB Q24H [facility] Lactated Ringer's (Lactated Ringers 1000 Ml Bag*) 1,000 mls @ 75 mls/hr IV PER RATE [facility] Doxycycline Hyclate 100 mg/ (Sodium Chloride) 250 mls @ 250 mls/hr IVPB 1030, 2230 [facility] Lorazepam (Ativan Inj*) 0.5 mg IV PUSH Q4H PRN Reason: AGITATION Mirtazapine (Remeron Tab*) 22.5 mg PO QPM [facility] Morphine Sulfate (Morphine Vial*) 1 mg IV Q4H PRN Reason: PAIN - MILD Ondansetron HCl (Zofran Inj*) 4 mg IV Q6H PRN Reason: NAUSEA Oxycodone HCl (Roxycodone Tab*) 2.5 mg PO Q6H PRN Reason: PAIN Polyethylene Glycol/Electrolytes (Miralax*) 17 gm PO EVERY OTHER DAY PRN Reason : CONSTIPATION Quetiapine Fumarate (Seroquel Tab*) 50 mg PO BID [facility] Senna (Senokot Tab*) 2 tab PO BEDTIME [facility] Vital Signs - 8 hr 05/18/18 05/18/18 05/18/18 03:53 03:55 05:15 Temperature 97.0 F Pulse Rate 82 Respiratory 18 17 20 Rate Blood Pressure 126/65 (mmHg) O2 Sat by Pulse 100 Oximetry 05/18/18 05/18/18 05/18/18 05:44 06:56 07:37 Temperature Pulse Rate Respiratory 20 20 16 Rate Blood Pressure (mmHg) O2 Sat by Pulse Oximetry 05/18/18 08:08 Temperature Pulse Rate 84 Respiratory 16 Rate Blood Pressure (mmHg) O2 Sat by Pulse 96 Oximetry Oxygen Devices in Use Now: OxyMask - 2L Appearance: NAD, laying in bed Ears/Nose/Mouth/Throat: Mucous Membranes Moist Respiratory: Symmetrical Chest Expansion and Respiratory Effort, Clear to Auscultation Cardiovascular: NL Sounds; No Murmurs; No JVD, RRR Abdominal: NL Sounds; No Tenderness; No Distention Extremities: No Edema Skin: - - Splint to left LE clean, dry and intact Neurological: NL Muscle Strength and Tone, - - Sleeping Lines/Tubes/Other Access: Clean, Dry and Intact Peripheral IV - site benign Nutrition: Taking PO's Result Diagrams: 05/18/18 07:03 05/18/18 07:03 Microbiology and Other Data: Microbiology 05/16/18 22:44 Aerobic Blood Culture - Preliminary Blood Venous No Growth Day 1 Anaerobic Blood Culture - Preliminary No Growth Day 1 05/17/18 08:02 Legionella Urinary Antigen - Final Urine Negative Legionella Antigen Streptococcus pneumoniae Ag Screen - Final Negative S. pneumo Antigen Assess/Plan/Problems-Billing Assessment: Ms. Chaney is an 88 yo female with a PMH for dementia, History of GI bleed, Osteopenia who is here with a lateral malleolus fracture of her left ankle. Patient has been splinted. Patient developed hypoxia and had radiographic findings consistent with pneumonia as well as a positive urinalysis. - Patient Problems (1) Fracture of left ankle, lateral malleolus Code(s): S82.62XA - DISP FX OF LATERAL MALLEOLUS OF LEFT FIBULA, INIT SNOMED Code(s): 721878736 Comment: - Splinted in the ED and will need casting on Sunday - Continue pain management (2) Pneumonia Code(s): J18.9 - PNEUMONIA, UNSPECIFIED ORGANISM SNOMED Code(s): 877610493 Comment: - Afebrile and no leukocytosis - Legionella and S. Pneumo antigens negative - Blood cultures no growth day 1 - Continue doxycycline and ceftriaxone (3) Fever Code(s): R50.9 - FEVER, UNSPECIFIED SNOMED Code(s): 924133818 Comment: - Temp max 100.4 on 05/17, now afebrile - Suspect due to pneumonia and possible UTI - Blood culture no growth and urine culture pending - Continue Ceftriaxone and Doxycycline (4) Dementia with behavioral disturbance Code(s): F03.91 - UNSPECIFIED DEMENTIA WITH BEHAVIORAL DISTURBANCE SNOMED Code (s): 0290475744808 Comment: - Behaviors improving - Advanced dementia - Continue supportive care - Continue Seroquel and ativan PRN (5) DVT prophylaxis Code(s): KMW9710 - SNOMED Code(s): 132646560 Comment: - Heparin SubQ (6) DNR (do not resuscitate) Status and Disposition: Inpatient. Awaiting placement, Pt unable to return to [place] while she is non- weight bearing.
[2018-05-18] MEDS: DOXYcycline IV* 100 MG in NS 0.9% 250 ML* 250 ML IVPB SCH ×2 (11:57→22:44)
[2018-05-18] MEDS: Acetaminophen TAB* 325 MG PO SCH ×2 (12:12→18:54)
[2018-05-18] MEDS: Acetaminophen SUPP* 650 MG SUPP PR PRN (13:18)
[2018-05-18] MEDS: Mirtazapine TAB* 15 MG PO SCH (17:45)
[2018-05-18] MEDS: Docusate CAP* 100 MG PO SCH (22:36)
[2018-05-18] MEDS: Senna TAB PO SCH (22:36)
[2018-05-19] MEDS: Acetaminophen TAB* 325 MG PO SCH ×6 (00:39→23:53)
[2018-05-19] MEDS: Heparin VIAL(*) 5000 UNITS/ML VIAL (FIVE THOUSAND) SUBCUT SCH ×3 (05:48→21:23)
[2018-05-19] MEDS: Acetaminophen SUPP* 650 MG SUPP PR PRN (06:36)
[2018-05-19 06:50] LABS: Hematocrit 26 % (35-47); Hemoglobin 8.7 g/dl (12.0-16.0)
[2018-05-19] MEDS: oxyCODONE TAB* 5 MG TAB PO PRN (07:02)
--- NOTE | 2018-05-19 08:20 | PN ---
Subjective Date of Service: 05/19/18 Interval History: Patient seen and examined at bedside. Pt is resting in bed with eyes closed, appears to be sleeping. When she is awake she is often agitated and occationally combative. Pt appears to be in no acute distress, unable to give review of symptoms. Family History: Unchanged from Admission Social History: Unchanged from Admission Past Medical History: Unchanged from Admission Objective Active Medications: Acetaminophen (Tylenol Tab*) 975 mg PO Q6H [facility] Acetaminophen (Tylenol Supp*) 650 mg [place] Q6H PRN Reason: If unable to take scheduled PO Albuterol (Ventolin 2.5 Mg/3 Ml Neb.[place]ena*) 2.5 mg INH Q4H PRN Reason: SOB/ WHEEZING Docusate Sodium (Colace Cap*) 100 mg PO BEDTIME [facility] Heparin Sodium (Porcine) (Heparin Vial(*)) 5,000 units SUBCUT Q8HR [facility] Ceftriaxone Sodium 1 gm/ (Sodium Chloride) 50 mls @ 200 mls/hr IVPB Q24H [facility] Doxycycline Hyclate 100 mg/ (Sodium Chloride) 250 mls @ 250 mls/hr IVPB 1030, 2230 [facility] Lorazepam (Ativan Inj*) 0.5 mg IV PUSH Q4H PRN Reason: AGITATION Mirtazapine (Remeron Tab*) 22.5 mg PO QPM [facility] Ondansetron HCl (Zofran Inj*) 4 mg IV Q6H PRN Reason: NAUSEA Oxycodone HCl (Roxycodone Tab*) 2.5 mg PO Q6H PRN Reason: PAIN - SEVERE Polyethylene Glycol/Electrolytes (Miralax*) 17 gm PO EVERY OTHER DAY PRN Reason : CONSTIPATION Quetiapine Fumarate (Seroquel Tab*) 50 mg PO BID [facility] Senna (Senokot Tab*) 2 tab PO BEDTIME [facility] Vital Signs - 8 hr 05/19/18 05/19/18 05/19/18 02:06 05:49 07:02 Temperature 98.3 F Pulse Rate 103 79 Respiratory 20 20 20 Rate Blood Pressure 145/86 (mmHg) O2 Sat by Pulse 93 100 Oximetry Oxygen Devices in Use Now: OxyMask - 2L Appearance: NAD, laying in bed Ears/Nose/Mouth/Throat: Mucous Membranes Moist Respiratory: Symmetrical Chest Expansion and Respiratory Effort, Clear to Auscultation Cardiovascular: NL Sounds; No Murmurs; No JVD, RRR Abdominal: NL Sounds; No Tenderness; No Distention Extremities: No Edema Skin: No Rash or Ulcers Neurological: - - Sleeping, not oriented Lines/Tubes/Other Access: Clean, Dry and Intact Peripheral IV - site with slight errythema Nutrition: Taking PO's Result Diagrams: 05/19/18 06:42 05/18/18 07:03 Microbiology and Other Data: Microbiology 05/16/18 22:44 Aerobic Blood Culture - Preliminary Blood Venous No Growth Day 1 Anaerobic Blood Culture - Preliminary No Growth Day 1 05/17/18 08:02 Legionella Urinary Antigen - Final Urine Negative Legionella Antigen Streptococcus pneumoniae Ag Screen - Final Negative S. pneumo Antigen Assess/Plan/Problems-Billing Assessment: Ms. Chaney is an 88 yo female with a PMH for dementia, History of GI bleed, Osteopenia who is here with a lateral malleolus fracture of her left ankle. Patient has been splinted. Patient developed hypoxia and had radiographic findings consistent with pneumonia as well as a positive urinalysis. - Patient Problems (1) Fracture of left ankle, lateral malleolus Code(s): S82.62XA - DISP FX OF LATERAL MALLEOLUS OF LEFT FIBULA, INIT SNOMED Code(s): 541470253 Comment: - Splinted in the ED and will need casting on Sunday - Continue pain management (2) Pneumonia Code(s): J18.9 - PNEUMONIA, UNSPECIFIED ORGANISM SNOMED Code(s): 991843748 Comment: - Afebrile and no leukocytosis - Legionella and S. Pneumo antigens negative - Blood cultures no growth day 2 - Continue doxycycline and ceftriaxone (3) Urinary retention Code(s): R33.9 - RETENTION OF URINE, UNSPECIFIED SNOMED Code(s): 688848453 Comment: - Acute - Pt unable to urinate yesterday and urinary catheter placed - Will remove urinary catheter this AM for voiding trial (4) Fever Code(s): R50.9 - FEVER, UNSPECIFIED SNOMED Code(s): 666988023 Comment: - Temp max 101 on 05/18, now afebrile - Suspect due to pneumonia - Blood culture no growth and urine culture no growth - Continue Ceftriaxone and Doxycycline (5) Dementia with behavioral disturbance Code(s): F03.91 - UNSPECIFIED DEMENTIA WITH BEHAVIORAL DISTURBANCE SNOMED Code (s): 6647313942149 Comment: - Behaviors improving - Advanced dementia - Continue supportive care - Continue Seroquel and ativan PRN (6) DVT prophylaxis Code(s): LEO8435 - SNOMED Code(s): 820972965 Comment: - Heparin SubQ (7) DNR (do not resuscitate) Status and Disposition: Inpatient. Awaiting placement, Pt unable to return to [place] while she is non- weight bearing. Attending: Bianca Bond
[2018-05-19] MEDS: cefTRIAXone(*) 1 GM in NS 0.9% 50 ML* 50 ML IVPB SCH (08:36)
[2018-05-19] MEDS: DOXYcycline IV* 100 MG in NS 0.9% 250 ML* 250 ML IVPB SCH ×2 (09:14→21:23)
[2018-05-19] MEDS: QUEtiapine TAB* 25 MG PO SCH ×2 (09:27→19:33)
[2018-05-19] MEDS: LORazepam INJ* 2 MG/ML 1 ML VIAL IV PUSH PRN (12:45)
--- NOTE | 2018-05-19 15:27 | PN ---
Hospitalist Progress Note Date of Service: 05/19/18 Patient's daughter and in to visit today. After Pt's left Pt was restless and calmed down per daughter. Daughter states that her mom woke up and stated "Where is my doctor, I am going to ". Pt was then non-responsive. Per Pt's daughter she has been having episodes of cyanosis to her nose for the last couple of days (I have not noted this myself). ~ [phone] Upon arrival to room, Pt appear to be resting comfortably in the bed with daughter at bedside. Daughter was discussing her concerns about her mother going to rehab and doing well. Pt was noted to have a period of apnea, then resumed regular breathing. Discussed with daughter that we could perform some tests and see what is happening. Pt's daughter wishes to proceed with comfort care only. 1430: Pt appears to be resting in bed with even respirations. Second daughter is on her way to hospital. Pt's daughter would like all interventions stopped at this time including ABX. 1530: Received a call from [facility] staff that Pt was awake and agitated. Will insert a urinary catheter if Pt allows. Comfort care orders in place.
[2018-05-19] MEDS ORDERED: Morphine ORAL CONCENTRATE* 5 MG/0.25 ML ORAL.SYRIN SL PRN (15:28)
[2018-05-19] MEDS ORDERED: Acetaminophen SUPP* 650 MG SUPP PR PRN ×2 (15:28→16:54)
[2018-05-19] MEDS ORDERED: Atropine 1% (ORAL/SL)* 15 ML BTL SL PRN (15:28)
[2018-05-19] MEDS ORDERED: LORazepam TAB(*) 1 MG SL PRN (15:28)
[2018-05-19] MEDS ORDERED: Albuterol 2.5 MG/3 ML NEB.SOL* (0.083%) INH PRN (16:58)
[2018-05-19] MEDS ORDERED: Polyethylene Glycol 3350* 17 GM PACKET PO PRN (17:01)
[2018-05-19] MEDS ORDERED: Ziprasidone IM INJ* 20 MG/ML VIAL IM PRN (17:14)
--- NOTE | 2018-05-19 17:24 | PN ---
Hospitalist Progress Note Date of Service: 05/19/18 Pt is now awake and throwing things. She has 2 daughters at bedside. Family meeting with 3 daughters (2 present and 1 over the phone). They would like their mom comfortable and would like to think about what they would like to do moving forward overnight. We discussed that the episode earlier could have been secondary to medications accumulating in her system. For now they would like to discontinue comfort care orders and resume what we were doing previously. If she will not eat or drink, they do not want IVFs given. They are agreeable to urinary catheter placement. We will resume all of her previously ordered medications. We will trial Geodon for severe agitation instead of Ativan.
[2018-05-19] MEDS: Mirtazapine TAB* 15 MG PO SCH (19:32)
[2018-05-19] MEDS: Docusate CAP* 100 MG PO SCH (21:23)
[2018-05-20] MEDS: Acetaminophen TAB* 325 MG PO SCH ×3 (05:22→18:23)
[2018-05-20] MEDS: Heparin VIAL(*) 5000 UNITS/ML VIAL (FIVE THOUSAND) SUBCUT SCH ×3 (05:38→21:18)
[2018-05-20] MEDS: cefTRIAXone(*) 1 GM in NS 0.9% 50 ML* 50 ML IVPB SCH (08:21)
[2018-05-20] MEDS: QUEtiapine TAB* 25 MG PO SCH ×2 (08:32→20:23)
[2018-05-20] MEDS: DOXYcycline IV* 100 MG in NS 0.9% 250 ML* 250 ML IVPB SCH ×2 (08:42→20:22)
--- NOTE | 2018-05-20 10:36 | PN ---
Subjective Date of Service: 05/20/18 Interval History: Patient seen and examined at bedside. Pt is more alert and interactive today. She is intermittently agitated and combative. Pt is able to converse some today also. Family History: Unchanged from Admission Social History: Unchanged from Admission Past Medical History: Unchanged from Admission Objective Active Medications: Acetaminophen (Tylenol Tab*) 975 mg PO Q6H [facility] Acetaminophen (Tylenol Supp*) 650 mg [place] Q4H PRN Reason: FEVER/PAIN Albuterol (Ventolin 2.5 Mg/3 Ml Neb.[place]ena*) 2.5 mg INH Q4H PRN Reason: SOB/ WHEEZING Docusate Sodium (Colace Cap*) 100 mg PO BEDTIME [facility] Heparin Sodium (Porcine) (Heparin Vial(*)) 5,000 units SUBCUT Q8HR [facility] Doxycycline Hyclate 100 mg/ (Sodium Chloride) 250 mls @ 250 mls/hr IVPB Q12H [facility] Ceftriaxone Sodium 1 gm/ (Sodium Chloride) 50 mls @ 200 mls/hr IVPB Q24H [facility] Mirtazapine (Remeron Tab*) 22.5 mg PO QPM [facility] Polyethylene Glycol/Electrolytes (Miralax*) 17 gm PO DAILY PRN Reason: CONSTIPATION Quetiapine Fumarate (Seroquel Tab*) 50 mg PO BID [facility] Ziprasidone (Geodon Im Inj*) 20 mg IM Q6H PRN Reason: AGITATION - SEVERE Vital Signs - 8 hr 05/20/18 05/20/18 05/20/18 03:01 03:06 07:47 Temperature 98.5 F 97.7 F Pulse Rate 71 74 Respiratory 19 20 Rate Blood Pressure 118/72 144/78 (mmHg) O2 Sat by Pulse 94 93 Oximetry 05/20/18 08:00 Temperature Pulse Rate Respiratory 20 Rate Blood Pressure (mmHg) O2 Sat by Pulse Oximetry Oxygen Devices in Use Now: None Appearance: NAD, laying in bed Ears/Nose/Mouth/Throat: Mucous Membranes Moist Respiratory: Symmetrical Chest Expansion and Respiratory Effort, Clear to Auscultation Cardiovascular: NL Sounds; No Murmurs; No JVD, RRR Abdominal: NL Sounds; No Tenderness; No Distention Extremities: No Edema Skin: No Rash or Ulcers Neurological: - - Alert and Confused Lines/Tubes/Other Access: Clean, Dry and Intact Peripheral IV - site benign Nutrition: Taking PO's - , minimal Result Diagrams: 05/19/18 06:42 05/18/18 07:03 Microbiology and Other Data: Microbiology 05/16/18 22:44 Aerobic Blood Culture - Preliminary Blood Venous No Growth Day 1 Anaerobic Blood Culture - Preliminary No Growth Day 1 05/17/18 08:02 Legionella Urinary Antigen - Final Urine Negative Legionella Antigen Streptococcus pneumoniae Ag Screen - Final Negative S. pneumo Antigen Assess/Plan/Problems-Billing Assessment: Ms. Chaney is an 88 yo female with a PMH for dementia, History of GI bleed, Osteopenia who is here with a lateral malleolus fracture of her left ankle. Patient has been splinted. Patient developed hypoxia and had radiographic findings consistent with pneumonia as well as a positive urinalysis. - Patient Problems (1) Fracture of left ankle, lateral malleolus Code(s): S82.62XA - DISP FX OF LATERAL MALLEOLUS OF LEFT FIBULA, INIT SNOMED Code(s): 069189571 Comment: - Splinted in the ED and will need casting today - Ortho consult, pending - Continue pain management (2) Pneumonia Code(s): J18.9 - PNEUMONIA, UNSPECIFIED ORGANISM SNOMED Code(s): 999485871 Comment: - Afebrile and no leukocytosis - Legionella and S. Pneumo antigens negative - Blood cultures no growth day 3 - Continue doxycycline (day 47) and ceftriaxone (day 4) (3) Urinary retention Code(s): R33.9 - RETENTION OF URINE, UNSPECIFIED SNOMED Code(s): 668892393 Comment: - Resolved, Pt is inc urine at this time (4) Fever Code(s): R50.9 - FEVER, UNSPECIFIED SNOMED Code(s): 536711726 Comment: - Temp max 101 on 05/18, now afebrile - Suspect due to pneumonia - Blood culture no growth and urine culture no growth - Continue Ceftriaxone and Doxycycline per above (5) Dementia with behavioral disturbance Code(s): F03.91 - UNSPECIFIED DEMENTIA WITH BEHAVIORAL DISTURBANCE SNOMED Code (s): 1984341866836 Comment: - Behaviors improving - Advanced dementia - Continue supportive care - Continue Seroquel (6) DVT prophylaxis Code(s): XBF0791 - SNOMED Code(s): 250261325 Comment: - Heparin SubQ (7) DNR (do not resuscitate) Status and Disposition: Inpatient. Awaiting placement, Pt unable to return to [place] while she is non- weight bearing.
--- NOTE | 2018-05-20 15:02 | CONS ---
ORTHOPEDIC CONSULTATION REPORT: DATE OF CONSULT: 05/20/18 CHIEF COMPLAINT: Left ankle lateral malleolus fracture. HISTORY OF PRESENT ILLNESS: The patient is an 88-year-old female with a left ankle lateral malleolus fracture S/P fall at home that was splinted in the emergency room on 05/16/18 and Orthopedics was consulted today to ask for casting before discharge. The patient has a history of dementia. She lives at [facility] and she is semi- independent. Patient is unable to provide a meaningful history to me. History is primarily taken from her chart. PAST MEDICAL HISTORY: History of kidney infection, for which she has been taking Cipro; history of osteoporosis; history of Alzheimer's dementia. SOCIAL HISTORY: The patient lives in [facility]. She does not smoke tobacco. She does not use alcohol. REVIEW OF SYSTEMS: Difficult to obtain a review of systems. The patient does groan in pain to movement of her left ankle while I am changing the splint to a cast. PHYSICAL EXAM: The patient is well appearing, in no acute distress. She is unable to communicate successfully. She does not answer my questions, though she is awake and she does ask that I not touch her left ankle due to pain. She later did become agreeable to me changing her splint to a cast. Left Lower Extremity: Splint removed from left ankle. Skin is intact over the left ankle and lower leg. She does have small scabs that are well healing on her left knee. She does have ecchymosis throughout the anterior and lateral left ankle. She does have some erythema over the base of the first metatarsal, though no skin breakdown, no open lesions. DP pulses 2+. Calf is supple and nontender. The patient does not follow direction to wiggle her toes. She is unable to tell me whether she is able to feel her toes. She does have brisk capillary refill distally. Short leg cast was placed and the patient tolerated it well. Vital Signs: Today, temperature 97.7, pulse 74, respiratory rate 20, oxygen saturation 93%, blood pressure 144/78. DIAGNOSTIC STUDIES: Ankle x-ray done on 05/16/18 showed a Zeng type B fracture of the lateral malleolus, decreased bone density. ASSESSMENT: Left ankle fracture of the lateral malleolus. PLAN: The patient will remain in left lower leg cast. She will be nonweightbearing. Dr Kitchen made aware of patient, she needs to follow up with one of our foot and ankle specialists, Dr. Kitchen or Dr. Angela in our office next week, call sooner with any issues. DOLLY TAPIA [id number]/[facility] #: [id number] MAXIM
[2018-05-20] MEDS: Mirtazapine TAB* 15 MG PO SCH (18:19)
[2018-05-20] MEDS: Docusate CAP* 100 MG PO SCH (20:23)
[2018-05-21] MEDS: Acetaminophen TAB* 325 MG PO SCH ×5 (00:02→16:21)
[2018-05-21] MEDS: DOXYcycline IV* 100 MG in NS 0.9% 250 ML* 250 ML IVPB SCH ×4 (00:03→23:47)
[2018-05-21] MEDS: Heparin VIAL(*) 5000 UNITS/ML VIAL (FIVE THOUSAND) SUBCUT SCH ×3 (05:42→21:33)
[2018-05-21] MEDS: QUEtiapine TAB* 25 MG PO SCH ×2 (06:59→20:32)
[2018-05-21] MEDS: cefTRIAXone(*) 1 GM in NS 0.9% 50 ML* 50 ML IVPB SCH (07:05)
--- NOTE | 2018-05-21 12:31 | PN ---
Progress Note - Progress Note Date of Service: 05/21/18 SOAP: Subjective: []Patient seen at bedside. She is awake but is generally groaning, not responding to my questions or instruction. Objective: [] Vital Signs Temp 98.5 F 05/21/18 07:36 Pulse 89 05/21/18 07:36 Resp 18 05/21/18 08:00 BP 150/72 05/21/18 07:36 Pulse Ox 95 05/21/18 07:36 Intake & Output 05/20/18 05/21/18 05/21/18 18:59 06:59 18:59 Intake Total 0 277 0 Balance 0 277 0 Intake: IVPB 277 ABX - DOXYCYCLINE 277 Oral 0 0 0 Other: Estimated Void Large Large # Bowel Movements 0 0 Estimated Stool Amount Small # Voids 2 1 Laboratory Last Values WBC 7.2 10^3/ul (3.5-10.8) 05/18/18 07:03 RBC 2.74 10^6/ul (4.00-5.40) L 05/18/18 07:03 Hgb 8.7 g/dl (12.0-16.0) L 05/19/18 06:42 Hct 26 % (35-47) L 05/19/18 06:42 MCV 87 fL (80-97) 05/18/18 07:03 MCH 29 pg (27-31) 05/18/18 07:03 MCHC 34 g/dl (31-36) 05/18/18 07:03 RDW 14 % (10.5-15) 05/18/18 07:03 Plt Count 217 10^3/ul (150-450) 05/18/18 07:03 MPV 7.2 um3 (7.4-10.4) L 05/18/18 07:03 Neut % (Auto) 55.4 % (38-83) 05/18/18 07:03 Lymph % (Auto) 27.1 % (25-47) 05/18/18 07:03 [place] % (Auto) 13.1 % (0-7) H 05/18/18 07:03 Eos % (Auto) 3.5 % (0-6) 05/18/18 07:03 Baso % (Auto) 0.9 % (0-2) 05/18/18 07:03 Absolute Neuts (auto) 4.0 10^3/ul (1.5-7.7) 05/18/18 07:03 Absolute Lymphs (auto) 1.9 10^3/ul (1.0-4.8) 05/18/18 07:03 Absolute Monos (auto) 0.9 10^3/ul (0-0.8) H 05/18/18 07:03 Absolute Eos (auto) 0.3 10^3/ul (0-0.6) 05/18/18 07:03 Absolute Basos (auto) 0.1 10^3/ul (0-0.2) 05/18/18 07:03 Absolute Nucleated RBC 0 10^3/ul 05/18/18 07:03 Nucleated RBC % 0 05/18/18 07:03 VBG pH 7.37 (7.33-7.43) 05/17/18 08:33 VBG pCO2 50 mmHg (41-51) 05/17/18 08:33 VBG pO2 38 mmHg (35-45) 05/17/18 08:33 VBG HCO3 26.8 mmol/L (24-28) 05/17/18 08:33 VBG O2 Saturation 75.6 % (70-80) 05/17/18 08:33 VBG Base Excess 3.0 (0-4) 05/17/18 08:33 Sodium 140 mmol/L (135-145) 05/18/18 07:03 Potassium 4.0 mmol/L (3.5-5.0) 05/18/18 07:03 Chloride 108 mmol/L (101-111) 05/18/18 07:03 Carbon Dioxide 27 mmol/L (22-32) 05/18/18 07:03 Anion Gap 5 mmol/L (2-11) 05/18/18 07:03 BUN 15 mg/dL (6-24) 05/18/18 07:03 Creatinine 1.06 mg/dL (0.51-0.95) H 05/18/18 07:03 Est GFR ( Amer) 59.2 (>60) 05/18/18 07:03 Est GFR (Non-Af Amer) 48.9 (>60) 05/18/18 07:03 BUN/Creatinine Ratio 14.2 (8-20) 05/18/18 07:03 Glucose 92 mg/dL (70-100) 05/18/18 07:03 Lactic Acid 1.0 mmol/L (0.5-2.0) 05/17/18 08:24 Calcium 8.4 mg/dL (8.6-10.3) L 05/18/18 07:03 Magnesium 1.9 mg/dL (1.9-2.7) 05/18/18 07:03 Urine Color Yellow 05/17/18 08:02 Urine Appearance Turbid 05/17/18 08:02 Urine pH 6.0 (5-9) 05/17/18 08:02 Ur Specific [place] 1.029 (1.010-1.030) 05/17/18 08:02 Urine Protein 1+(30 mg/dl) (Negative) A 05/17/18 08:02 Urine Ketones Negative (Negative) 05/17/18 08:02 Urine Blood Negative (Negative) 05/17/18 08:02 Urine Nitrate Negative (Negative) 05/17/18 08:02 Urine Bilirubin Negative (Negative) 05/17/18 08:02 Urine Urobilinogen Negative (Negative) 05/17/18 08:02 Ur Leukocyte Esterase 3+ (Negative) A 05/17/18 08:02 Urine WBC (Auto) 3+(>20/hpf) (Absent) A 05/17/18 08:02 Urine RBC (Auto) 3+(>10/hpf) (Absent) A 05/17/18 08:02 Urine Bacteria Absent (Absent) 05/17/18 08:02 Urine Glucose Negative (Negative) 05/17/18 08:02 Urine Ascorbic Acid * (Negative) A 05/17/18 08:02 General: NAD LLE: lower leg cast in place. Toes warm, capillary refill less than two seconds. Assessment: []Left lateral malleolus fracture Plan: []NWB LLE DC when medically stable and follow up in office with Dr. Angela or Dr. Kitchen next week
--- NOTE | 2018-05-21 14:29 | PN ---
Subjective Date of Service: 05/21/18 Interval History: Patient alert and confused yelling out. When the nurse or aid sits at the bedside she stops yelling and is calm. She denies pain. Family History: Unchanged from Admission Social History: Unchanged from Admission Past Medical History: Unchanged from Admission Objective Active Medications: Acetaminophen (Tylenol Tab*) 975 mg PO Q6H [facility] Last Admin: 05/21/18 11:54 Dose: Not Given Acetaminophen (Tylenol Supp*) 650 mg [place] Q4H PRN PRN Reason: FEVER/PAIN Last Admin: 05/20/18 13:02 Dose: 650 mg Albuterol (Ventolin 2.5 Mg/3 Ml Neb.[place]*) 2.5 mg INH Q4H PRN PRN Reason: SOB/WHEEZING Docusate Sodium (Colace Cap*) 100 mg PO BEDTIME [facility] Last Admin: 05/20/18 20:23 Dose: 100 mg Heparin Sodium (Porcine) (Heparin Vial(*)) 5,000 units SUBCUT Q8HR [facility] Last Admin: 05/21/18 05:42 Dose: 5,000 units Ceftriaxone Sodium 1 gm/ (Sodium Chloride) 50 mls @ 200 mls/hr IVPB Q24H [facility] Last Admin: 05/21/18 07:05 Dose: 200 mls/hr Doxycycline Hyclate 100 mg/ (Sodium Chloride) 250 mls @ 250 mls/hr IVPB 0000, 1200 [facility] Last Admin: 05/21/18 11:54 Dose: 250 mls/hr Mirtazapine (Remeron Tab*) 22.5 mg PO QPM [facility] Last Admin: 05/20/18 18:19 Dose: 22.5 mg Polyethylene Glycol/Electrolytes (Miralax*) 17 gm PO DAILY PRN PRN Reason: CONSTIPATION Quetiapine Fumarate (Seroquel Tab*) 50 mg PO BID [facility] Last Admin: 05/21/18 06:59 Dose: 50 mg Ziprasidone (Geodon Im Inj*) 20 mg IM Q6H PRN PRN Reason: AGITATION - SEVERE Last Admin: 05/20/18 22:05 Dose: 20 mg Vital Signs - 8 hr 05/21/18 05/21/18 05/21/18 07:36 08:00 12:20 Temperature 98.5 F 98.5 F Pulse Rate 89 75 Respiratory 18 18 16 Rate Blood Pressure 150/72 142/71 (mmHg) O2 Sat by Pulse 95 97 Oximetry Oxygen Devices in Use Now: None Appearance: elderly female laying in bed alert, confused Eyes: No Scleral Icterus, PERRLA Ears/Nose/Mouth/Throat: NL Teeth, Lips, Gums, Mucous Membranes Moist Neck: NL Appearance and Movements; NL JVP Respiratory: Symmetrical Chest Expansion and Respiratory Effort, Clear to Auscultation Cardiovascular: NL Sounds; No Murmurs; No JVD, RRR, No Edema Abdominal: NL Sounds; No Tenderness; No Distention Extremities: - - left lower leg in a cast - + sensation in LE Neurological: NL Sensation Lines/Tubes/Other Access: Clean, Dry and Intact Peripheral IV Nutrition: Taking PO's Result Diagrams: 05/19/18 06:42 05/18/18 07:03 Microbiology and Other Data: Microbiology 05/16/18 22:44 Aerobic Blood Culture - Preliminary Blood Venous No Growth Day 1 Anaerobic Blood Culture - Preliminary No Growth Day 1 05/17/18 08:02 Legionella Urinary Antigen - Final Urine Negative Legionella Antigen Streptococcus pneumoniae Ag Screen - Final Negative S. pneumo Antigen Assess/Plan/Problems-Billing Assessment: Ms. Chaney is an 88 yo female with a PMH for dementia, History of GI bleed, Osteopenia who is here with a lateral malleolus fracture of her left ankle. Patient has been splinted. Patient developed hypoxia and had radiographic findings consistent with pneumonia as well as a positive urinalysis. - Patient Problems (1) Fracture of left ankle, lateral malleolus Comment: - Ortho consult, applied casting today - Continue pain management (2) Pneumonia Comment: - Afebrile and no leukocytosis - Legionella and S. Pneumo antigens negative - Blood cultures no growth day 3 - Continue doxycycline (day 4/7) and ceftriaxone (day 4/7) (3) Urinary retention Comment: - Resolved, Pt is inc urine at this time (4) Dementia with behavioral disturbance Comment: - Behaviors improving - Advanced dementia - Continue supportive care - Continue Seroquel (5) DNR (do not resuscitate) (6) DVT prophylaxis Comment: - Heparin SubQ Status and Disposition: Inpatient. Awaiting placement, Pt unable to return to [facility] while she is non- weight bearing.
[2018-05-21] MEDS: Mirtazapine TAB* 15 MG PO SCH (16:21)
[2018-05-21] MEDS: Docusate CAP* 100 MG PO SCH (20:32)
[2018-05-22] MEDS: Acetaminophen TAB* 325 MG PO SCH ×5 (00:06→18:08)
[2018-05-22] MEDS: Heparin VIAL(*) 5000 UNITS/ML VIAL (FIVE THOUSAND) SUBCUT SCH ×3 (05:29→21:21)
[2018-05-22] MEDS: cefTRIAXone(*) 1 GM in NS 0.9% 50 ML* 50 ML IVPB SCH (07:47)
[2018-05-22] MEDS: QUEtiapine TAB* 25 MG PO SCH ×2 (07:50→20:26)
--- NOTE | 2018-05-22 10:54 | PN ---
Subjective Date of Service: 05/22/18 Interval History: Pt appears more calm this morning and is not noted to be yelling out. She denies pain. She follows most commands but is noted to be very confused with dementia - she is not able to tell me her name or where she is. No concerns per nursing staff Family History: Unchanged from Admission Social History: Unchanged from Admission Past Medical History: Unchanged from Admission Objective Active Medications: Acetaminophen (Tylenol Tab*) 975 mg PO Q6H [facility] Last Admin: 05/22/18 05:35 Dose: Not Given Acetaminophen (Tylenol Supp*) 650 mg [place] Q4H PRN PRN Reason: FEVER/PAIN Last Admin: 05/20/18 13:02 Dose: 650 mg Albuterol (Ventolin 2.5 Mg/3 Ml Neb.[place]*) 2.5 mg INH Q4H PRN PRN Reason: SOB/WHEEZING Docusate Sodium (Colace Cap*) 100 mg PO BEDTIME [facility] Last Admin: 05/21/18 20:32 Dose: 100 mg Heparin Sodium (Porcine) (Heparin Vial(*)) 5,000 units SUBCUT Q8HR [facility] Last Admin: 05/22/18 05:29 Dose: 5,000 units Ceftriaxone Sodium 1 gm/ (Sodium Chloride) 50 mls @ 200 mls/hr IVPB Q24H [facility] Last Admin: 05/22/18 07:47 Dose: 200 mls/hr Doxycycline Hyclate 100 mg/ (Sodium Chloride) 250 mls @ 250 mls/hr IVPB 0000, 1200 [facility] Last Admin: 05/21/18 23:47 Dose: 250 mls/hr Mirtazapine (Remeron Tab*) 22.5 mg PO QPM [facility] Last Admin: 05/21/18 16:21 Dose: 22.5 mg Polyethylene Glycol/Electrolytes (Miralax*) 17 gm PO DAILY PRN PRN Reason: CONSTIPATION Quetiapine Fumarate (Seroquel Tab*) 50 mg PO BID [facility] Last Admin: 05/22/18 07:50 Dose: 50 mg Ziprasidone (Geodon Im Inj*) 20 mg IM Q6H PRN PRN Reason: AGITATION - SEVERE Last Admin: 05/20/18 22:05 Dose: 20 mg Vital Signs - 8 hr 05/22/18 05/22/18 08:14 09:50 Temperature 98.5 F Pulse Rate 92 Respiratory 18 18 Rate Blood Pressure 149/46 (mmHg) O2 Sat by Pulse 91 Oximetry Oxygen Devices in Use Now: None Appearance: elderly female alert, confused in NAD Eyes: No Scleral Icterus, PERRLA Neck: NL Appearance and Movements; NL JVP Respiratory: Symmetrical Chest Expansion and Respiratory Effort, Clear to Auscultation Cardiovascular: NL Sounds; No Murmurs; No JVD, RRR, No Edema Abdominal: NL Sounds; No Tenderness; No Distention Extremities: No Edema, No Clubbing, Cyanosis, - - left boot cast intact, wiggles toes, + sensation, toes pink, warm. Neurological: NL Sensation, - - alert Lines/Tubes/Other Access: Clean, Dry and Intact Peripheral IV Nutrition: Taking PO's Result Diagrams: 05/19/18 06:42 05/18/18 07:03 Microbiology and Other Data: Microbiology 05/16/18 22:44 Aerobic Blood Culture - Preliminary Blood Venous No Growth Day 1 Anaerobic Blood Culture - Preliminary No Growth Day 1 05/17/18 08:02 Legionella Urinary Antigen - Final Urine Negative Legionella Antigen Streptococcus pneumoniae Ag Screen - Final Negative S. pneumo Antigen Assess/Plan/Problems-Billing Assessment: Ms. Chaney is an 88 yo female with a PMH for dementia, History of GI bleed, Osteopenia who is here with a lateral malleolus fracture of her left ankle. Patient has been splinted. Patient developed hypoxia and had radiographic findings consistent with pneumonia as well as a positive urinalysis. - Patient Problems (1) Fracture of left ankle, lateral malleolus Comment: - Ortho consult, applied casting 05/21 - Continue pain management (2) Pneumonia Comment: - Afebrile and no leukocytosis - Legionella and S. Pneumo antigens negative - Blood cultures no growth day 5 - Continue doxycycline (day 6/7) - plan to DC tomorrow. (3) Urinary retention Comment: - Resolved, Pt is inc urine at this time (4) Dementia with behavioral disturbance Comment: - Behaviors improving - Advanced dementia - Continue supportive care - Continue Seroquel (5) DNR (do not resuscitate) (6) DVT prophylaxis Comment: - Heparin SubQ Status and Disposition: Inpatient. Awaiting placement, Pt unable to return to [place] while she is non- weight bearing. Bed at [facility]; plan for DC tomorrow.
[2018-05-22] MEDS: DOXYcycline IV* 100 MG in NS 0.9% 250 ML* 250 ML IVPB SCH ×2 (13:57→23:53)
--- NOTE | 2018-05-22 15:09 | PN ---
Progress Note - Progress Note Date of Service: 05/22/18 SOAP: Subjective: []Patient seen at bedside. She answers questions more appropriately today, stating her left foot is not painful. Objective: [] Vital Signs Temp 98.5 F 05/22/18 08:14 Pulse 92 05/22/18 08:14 Resp 18 05/22/18 09:50 BP 149/46 05/22/18 08:14 Pulse Ox 91 05/22/18 08:14 Intake & Output 05/21/18 05/22/18 05/22/18 18:59 06:59 18:59 Intake Total 0 250 125 Balance 0 250 125 Intake: IV Fluids 25 NS (0.9%) 25 IVPB 250 ABX - DOXYCYCLINE 250 Oral 0 0 100 Other: Estimated Void Large Medium Medium # Bowel Movements 1 0 1 Estimated Stool Amount Medium Small Medium # Voids 1 1 2 Laboratory Last Values WBC 7.2 10^3/ul (3.5-10.8) 05/18/18 07:03 RBC 2.74 10^6/ul (4.00-5.40) L 05/18/18 07:03 Hgb 8.7 g/dl (12.0-16.0) L 05/19/18 06:42 Hct 26 % (35-47) L 05/19/18 06:42 MCV 87 fL (80-97) 05/18/18 07:03 MCH 29 pg (27-31) 05/18/18 07:03 MCHC 34 g/dl (31-36) 05/18/18 07:03 RDW 14 % (10.5-15) 05/18/18 07:03 Plt Count 217 10^3/ul (150-450) 05/18/18 07:03 MPV 7.2 um3 (7.4-10.4) L 05/18/18 07:03 Neut % (Auto) 55.4 % (38-83) 05/18/18 07:03 Lymph % (Auto) 27.1 % (25-47) 05/18/18 07:03 [place] % (Auto) 13.1 % (0-7) H 05/18/18 07:03 Eos % (Auto) 3.5 % (0-6) 05/18/18 07:03 Baso % (Auto) 0.9 % (0-2) 05/18/18 07:03 Absolute Neuts (auto) 4.0 10^3/ul (1.5-7.7) 05/18/18 07:03 Absolute Lymphs (auto) 1.9 10^3/ul (1.0-4.8) 05/18/18 07:03 Absolute Monos (auto) 0.9 10^3/ul (0-0.8) H 05/18/18 07:03 Absolute Eos (auto) 0.3 10^3/ul (0-0.6) 05/18/18 07:03 Absolute Basos (auto) 0.1 10^3/ul (0-0.2) 05/18/18 07:03 Absolute Nucleated RBC 0 10^3/ul 05/18/18 07:03 Nucleated RBC % 0 05/18/18 07:03 VBG pH 7.37 (7.33-7.43) 05/17/18 08:33 VBG pCO2 50 mmHg (41-51) 05/17/18 08:33 VBG pO2 38 mmHg (35-45) 05/17/18 08:33 VBG HCO3 26.8 mmol/L (24-28) 05/17/18 08:33 VBG O2 Saturation 75.6 % (70-80) 05/17/18 08:33 VBG Base Excess 3.0 (0-4) 05/17/18 08:33 Sodium 140 mmol/L (135-145) 05/18/18 07:03 Potassium 4.0 mmol/L (3.5-5.0) 05/18/18 07:03 Chloride 108 mmol/L (101-111) 05/18/18 07:03 Carbon Dioxide 27 mmol/L (22-32) 05/18/18 07:03 Anion Gap 5 mmol/L (2-11) 05/18/18 07:03 BUN 15 mg/dL (6-24) 05/18/18 07:03 Creatinine 1.06 mg/dL (0.51-0.95) H 05/18/18 07:03 Est GFR ( Amer) 59.2 (>60) 05/18/18 07:03 Est GFR (Non-Af Amer) 48.9 (>60) 05/18/18 07:03 BUN/Creatinine Ratio 14.2 (8-20) 05/18/18 07:03 Glucose 92 mg/dL (70-100) 05/18/18 07:03 Lactic Acid 1.0 mmol/L (0.5-2.0) 05/17/18 08:24 Calcium 8.4 mg/dL (8.6-10.3) L 05/18/18 07:03 Magnesium 1.9 mg/dL (1.9-2.7) 05/18/18 07:03 Urine Color Yellow 05/17/18 08:02 Urine Appearance Turbid 05/17/18 08:02 Urine pH 6.0 (5-9) 05/17/18 08:02 Ur Specific [place] 1.029 (1.010-1.030) 05/17/18 08:02 Urine Protein 1+(30 mg/dl) (Negative) A 05/17/18 08:02 Urine Ketones Negative (Negative) 05/17/18 08:02 Urine Blood Negative (Negative) 05/17/18 08:02 Urine Nitrate Negative (Negative) 05/17/18 08:02 Urine Bilirubin Negative (Negative) 05/17/18 08:02 Urine Urobilinogen Negative (Negative) 05/17/18 08:02 Ur Leukocyte Esterase 3+ (Negative) A 05/17/18 08:02 Urine WBC (Auto) 3+(>20/hpf) (Absent) A 05/17/18 08:02 Urine RBC (Auto) 3+(>10/hpf) (Absent) A 05/17/18 08:02 Urine Bacteria Absent (Absent) 05/17/18 08:02 Urine Glucose Negative (Negative) 05/17/18 08:02 Urine Ascorbic Acid * (Negative) A 05/17/18 08:02 General: NAD LLE: lower leg cast in place. Toes warm, capillary refill less than two seconds. Assessment: []Left lateral malleolus fracture Plan: []NWB LLE DC when medically stable and follow up in office with Dr. Angela or Dr. Kitchen next week
--- NOTE | 2018-05-22 15:41 | RAD ---
INDICATION: Fall. Left hip pain COMPARISON: None TECHNIQUE: An AP view of the pelvis and AP views of the hip in neutral and abducted position were obtained FINDINGS: Bones: There are no acute bony findings. Joint spaces: The hips articulate normally. The joint spaces are preserved. SI joints/symphysis: The SI joints and symphysis are intact. Other: None IMPRESSION: NEGATIVE PLAIN RADIOGRAPHIC EVALUATION
[2018-05-22] MEDS: Mirtazapine TAB* 15 MG PO SCH ×2 (18:01→18:08)
[2018-05-22] MEDS: Docusate CAP* 100 MG PO SCH (20:26)
[2018-05-23] MEDS: Acetaminophen TAB* 325 MG PO SCH ×4 (00:20→18:01)
[2018-05-23] MEDS: Heparin VIAL(*) 5000 UNITS/ML VIAL (FIVE THOUSAND) SUBCUT SCH ×3 (05:47→21:57)
[2018-05-23 06:06] LABS: ABS Basophils 0.1 10^3/ul (0-0.2); ABS Eosinophils 0.1 10^3/ul (0-0.6); ABS Lymphocytes 2.7 10^3/ul (1.0-4.8); ABS Monocytes 0.8 10^3/ul (0-0.8); ABS Neutrophils 4.1 10^3/ul (1.5-7.7); ABS Nucleated RBC 0 10^3/ul; Eosinophil % 1.6 % (0-6); Hematocrit 30 % (35-47); Hemoglobin 10.2 g/dl (12.0-16.0); Lymphocyte % 34.9 % (25-47); Mean Corpuscular HGB Conc 34 g/dl (31-36); Mean Corpuscular Hemoglobin 29 pg (27-31); Mean Corpuscular Volume 85 fL (80-97); Mean Platelet Volume 7.2 um3 (7.4-10.4); Nucleated Red Blood Cells % 0.1; Platelet Count 297 10^3/ul (150-450); Red Blood Count 3.52 10^6/ul (4.00-5.40); Red Cell Distribution Width 15 % (10.5-15); White Blood Count 7.8 10^3/ul (3.5-10.8)
[2018-05-23 06:25] LABS: EGFR Non-African American 67.7 (>60)
[2018-05-23] MEDS: QUEtiapine TAB* 25 MG PO SCH ×2 (09:05→20:08)
--- NOTE | 2018-05-23 10:44 | DCNOTE ---
Subjective Date of Service: 05/23/18 Interval History: Pt confused on exam today which is her baseline. She is alert resting in bed comfortable. No concerns per nursing. Dicussed with daughter Abdullahi this morning , ok [facility] - she now reports she is worried they wont have enough staff and is going to appeal the discharge. She is setting up [employer] for extra help and they will be able to start tomorrow. Family History: Unchanged from Admission Social History: Unchanged from Admission Past Medical History: Unchanged from Admission Objective Active Medications: Acetaminophen (Tylenol Tab*) 975 mg PO Q6H [facility] Last Admin: 05/23/18 05:47 Dose: Not Given Acetaminophen (Tylenol Supp*) 650 mg [place] Q4H PRN PRN Reason: FEVER/PAIN Last Admin: 05/20/18 13:02 Dose: 650 mg Albuterol (Ventolin 2.5 Mg/3 Ml Neb.[place]*) 2.5 mg INH Q4H PRN PRN Reason: SOB/WHEEZING Docusate Sodium (Colace Cap*) 100 mg PO BEDTIME [facility] Last Admin: 05/22/18 20:26 Dose: Not Given Heparin Sodium (Porcine) (Heparin Vial(*)) 5,000 units SUBCUT Q8HR [facility] Last Admin: 05/23/18 05:47 Dose: 5,000 units Doxycycline Hyclate 100 mg/ (Sodium Chloride) 250 mls @ 250 mls/hr IVPB 0000, 1200 [facility] Last Admin: 05/22/18 23:53 Dose: 250 mls/hr Mirtazapine (Remeron Tab*) 22.5 mg PO QPM [facility] Last Admin: 05/22/18 18:08 Dose: Not Given Polyethylene Glycol/Electrolytes (Miralax*) 17 gm PO DAILY PRN PRN Reason: CONSTIPATION Quetiapine Fumarate (Seroquel Tab*) 50 mg PO BID [facility] Last Admin: 05/23/18 09:05 Dose: Not Given Ziprasidone (Geodon Im Inj*) 20 mg IM Q6H PRN PRN Reason: AGITATION - SEVERE Last Admin: 05/20/18 22:05 Dose: 20 mg Vital Signs - 8 hr 05/23/18 05/23/18 05/23/18 04:17 07:25 09:20 Temperature 97.6 F Pulse Rate 92 71 80 Respiratory 20 18 16 Rate Blood Pressure 138/111 141/55 (mmHg) O2 Sat by Pulse 96 96 94 Oximetry 05/23/18 09:23 Temperature Pulse Rate Respiratory 18 Rate Blood Pressure (mmHg) O2 Sat by Pulse Oximetry Oxygen Devices in Use Now: None Appearance: eldelry female sitting up in bed in NAD - confused Eyes: No Scleral Icterus, PERRLA Ears/Nose/Mouth/Throat: Mucous Membranes Moist Respiratory: Symmetrical Chest Expansion and Respiratory Effort, Clear to Auscultation Cardiovascular: NL Sounds; No Murmurs; No JVD, RRR, No Edema Abdominal: NL Sounds; No Tenderness; No Distention Extremities: No Edema, - - Left Lower Extremity in hard cast - toes pink, warm, + sensation Neurological: - - alert Lines/Tubes/Other Access: Clean, Dry and Intact Peripheral IV Nutrition: Taking PO's Result Diagrams: 05/23/18 05:42 05/23/18 05:42 Microbiology and Other Data: Microbiology 05/16/18 22:44 Aerobic Blood Culture - Preliminary Blood Venous No Growth Day 1 Anaerobic Blood Culture - Preliminary No Growth Day 1 05/17/18 08:02 Legionella Urinary Antigen - Final Urine Negative Legionella Antigen Streptococcus pneumoniae Ag Screen - Final Negative S. pneumo Antigen Assess/Plan/Problems-Billing Assessment: Ms. Chaney is an 88 yo female with a PMH for dementia, History of GI bleed, Osteopenia who is here with a lateral malleolus fracture of her left ankle. Patient has been splinted. Patient developed hypoxia and had radiographic findings consistent with pneumonia as well as a positive urinalysis. - Patient Problems (1) Fracture of left ankle, lateral malleolus Comment: - Ortho consult, applied casting 05/21 - Continue pain management - follow up next week in Ortho Office (2) Pneumonia Comment: - Afebrile and no leukocytosis - Legionella and S. Pneumo antigens negative - Blood cultures no growth day 5 - finished course of doxycycline and ceftriaxone (3) Urinary retention Comment: - Resolved, Pt is inc urine at this time (4) Dementia with behavioral disturbance Comment: - Behaviors improving - Advanced dementia - Continue supportive care - Continue Seroquel (5) DNR (do not resuscitate) (6) DVT prophylaxis Comment: - Heparin SubQ Status and Disposition: Inpatient. medically stable for DC today. Bed at [facility]. Daughter is appealing DC d/t concern there is not enough staff at [facility].
[2018-05-23] MEDS: DOXYcycline IV* 100 MG in NS 0.9% 250 ML* 250 ML IVPB SCH (12:18)
--- NOTE | 2018-05-23 14:42 | DS ---
CC: Dr. Dawna Urias; DOLLY Avalos; Dr. Kitchen * DISCHARGE SUMMARY: DATE OF ADMISSION: 05/16/18 DATE OF DISCHARGE: 05/23/18 PROVIDER: Duncan Fletcher NP ATTENDING PHYSICIAN: Dr. Rojas * (report dictated by Duncan Fletcher NP) PRIMARY CARE PROVIDER: Dr. Dawna Urias. ORTHOPEDICS: DOLLY Avalos and Dr. Kitchen. DISPOSITION: Discharged to [facility]. DISCHARGE DIAGNOSES: 1. Fall. 2. Left lateral malleolus fracture. 3. Alzheimer's dementia. 4. Normocytic anemia. 5. Acute renal failure. SECONDARY DIAGNOSES: 1. Hyperlipidemia. 2. Osteopenia. 3. History of gastrointestinal bleed in 2018 of unknown cause. 4. Status post hysterectomy. 5. Left cataract excision. 6. Status post lumpectomy. DISCHARGE MEDICATIONS: 1. Acetaminophen 1000 mg p.o. q.8 hours, max daily dose 3000 mg. 2. Albuterol 2.5 mg/3 mL neb solution INH q.4 hours p.r.n. 3. Colace 100 mg p.o. at bedtime. 4. Remeron 22.5 mg p.o. q.p.m. 5. Seroquel 50 mg p.o. b.i.d. 6. MiraLAX 17 g p.o. daily p.r.n. 7. EpiPen 0.3 mg IM, follow directions. ALLERGIES: BEE VENOM, HALDOL, PENICILLIN. HISTORY OF PRESENT ILLNESS AND HOSPITAL COURSE: Please see history and physical by DOLLY Clark, for full admission details, but in summary, this is an 88-year- old female, who presented to [facility] on 05/16/18 after a fall and was found to be in pain. In the emergency department, she was found to have a left lateral malleolus fracture. She was seen by the orthopedic team and was placed in a hard cast. She is to be non-weightbearing on her left lower extremity. She was living at [facility] with her who also has dementia and has 3 daughters that are involved in her care. The patient is unable to return to [facility] and will require subacute rehab due to the fracture. In regards to the patient's fall, it was thought that she had a mechanical fall. She has quite advanced Alzheimer 's dementia. Due to some noted mild hypoxia the evening of admission, she did undergo a chest , thorax CTA, which showed "no evidence of acute pulmonary embolic disease. Chronic lung findings. Atherosclerotic changes, cardiomegaly, and suspected mild pulmonary venous congestion. Large hiatal hernia." However, it was thought that she possibly had pneumonia due to her presentation and was noted with hypoxia along with some lethargy and she was empirically treated for community-acquired pneumonia. She finished a full course of doxycycline and had several days of ceftriaxone. Her blood cultures were negative as well as legionella and streptococcus. Urine antigens were negative. Urine culture was negative. Initially, on day of admission, she did have a low-grade temp of 100.4 and on 05/18/18, she had a temp of 101. However, since that time, she has been afebrile. The patient did present with acute renal failure with a creatinine of 1.10. This has resolved and last checked today on \\05/23/18 and was noted to be 0.80. She has remained hemodynamically stable throughout hospitalization. She did have some noted low blood pressures initially on arrival and at times was noted to be , but this has resolved in the last couple of days. Per nursing staff, she frequently refuses her oral medications. She has quite significant advanced dementia and occasionally can have aggressive behaviors; however, over the last 3 days, she has been much appropriate and not noted to be as aggressive as during her initial hospitalization. DISCHARGE PLAN: 1. The patient will be discharged to [facility] for subacute rehab with hopes to return to [facility]. 2. Follow up with orthopedic team, Dr. Kitchen, next week in the office. 3. The patient is to be non-weightbearing on her left lower extremity. DIET: Pureed texture, regular. Please note this patient is at high risk for falls due to her advanced dementia. The patient's daughter will be hiring comfort keepers for extra help. TIME SPENT: Approximately 60 minutes was spent on this discharge. DUNCAN FLETCHER NP [id number]/[facility] #: [id number] MAXIM
[2018-05-23] MEDS: Mirtazapine TAB* 15 MG PO SCH (18:01)
[2018-05-23] MEDS: Docusate CAP* 100 MG PO SCH (20:21)
[2018-05-24] MEDS: Acetaminophen TAB* 325 MG PO SCH ×2 (00:29→06:11)
[2018-05-24] MEDS: DOXYcycline IV* 100 MG in NS 0.9% 250 ML* 250 ML IVPB SCH (00:29)
[2018-05-24] MEDS: Heparin VIAL(*) 5000 UNITS/ML VIAL (FIVE THOUSAND) SUBCUT SCH (06:11)
[2018-05-24] MEDS: QUEtiapine TAB* 25 MG PO SCH (07:45)
[2018-05-24 08:20] VITALS: BP 140/79
--- NOTE | 2018-05-24 09:58 | PN ---
Progress Note - Progress Note Date of Service: 05/24/18 SOAP: Subjective: Pt able to answer some questions appropriately. States that leg is not painful Objective: Vital Signs Temp Pulse Resp BP Pulse Ox 98.8 F 81 16 140/79 94 05/24/18 07:47 05/24/18 07:47 05/24/18 08:20 05/24/18 07:47 05/24/18 07:47 General: NAD , WDWN LLE: lower leg cast in place. Toes warm, capillary refill less than two seconds. Assessment: Left lateral malleolus fracture Plan: NWB LLE Keep cast c/d/i DC when medically stable and follow up in office with Dr. Angela or Dr. Kitchen next week
[2018-05-24] MEDS ORDERED: LORazepam TAB(*) 0.5 MG PO ONE (10:52)
[2018-05-24] MEDS ORDERED: LORazepam TAB(*) 0.5 MG ONE (10:55)
--- NOTE | 2018-05-24 10:55 | PN ---
Hospitalist Progress Note Date of Service: 05/24/18 Patient will be dc to [facility] today. daughter appealed her discharge yesterday d/t [employer] keepers not being available until today. stable for DC today. Please see discharge summary
[2018-05-24] MEDS ORDERED: LORazepam INJ* 2 MG/ML 1 ML VIAL IV PUSH ONE (11:15)
== END 2018-05-24 11:05 | DRG 562 ==
LOC: ED 10:48 → MED 14:35
PROVIDERS: ADMIT Internal Medicine; ATTEND Internal Medicine
PROC: 2W3RX2Z Immobilization of Left Lower Leg using Cast (ICD-10-PCS; principal; 2018-05-16)
PROC: 0T9B70Z Drainage of Bladder with Drainage Device, Via Natural or Artificial Opening (ICD-10-PCS; 2018-05-18)
DX: S82.62XA Displaced fracture of lateral malleolus of left fibula, initial encounter for closed fracture (principal); J18.9 Pneumonia, unspecified organism; N17.9 Acute kidney failure, unspecified; F02.81 Dementia in other diseases classified elsewhere, unspecified severity, with behavioral disturbance; G30.9 Alzheimer's disease, unspecified; M81.0 Age-related osteoporosis without current pathological fracture; M85.80 Other specified disorders of bone density and structure, unspecified site; E78.5 Hyperlipidemia, unspecified; Z66 Do not resuscitate; Y93.01 Activity, walking, marching and hiking; D64.9 Anemia, unspecified; K44.9 Diaphragmatic hernia without obstruction or gangrene; W19.XXXA Unspecified fall, initial encounter; R33.9 Retention of urine, unspecified; R06.81 Apnea, not elsewhere classified; Z88.0 Allergy status to penicillin; Z88.8 Allergy status to other drugs, medicaments and biological substances; Z91.030 Bee allergy status; Z86.19 Personal history of other infectious and parasitic diseases; Z85.3 Personal history of malignant neoplasm of breast; Y92.002 Bathroom of unspecified non-institutional (private) residence as the place of occurrence of the external cause; Z98.42 Cataract extraction status, left eye; Z90.710 Acquired absence of both cervix and uterus; Z87.19 Personal history of other diseases of the digestive system; Z79.51 Long term (current) use of inhaled steroids; Y92.091 Bathroom in other non-institutional residence as the place of occurrence of the external cause
CPT/HCPCS: 36415; 71045; 71275; 80048; 81003; 81015; 82803; 83605; 83735; 85014; 85018; 85025; 87040; 87086; 87899; 94640; 99283; A9270-GY; J0696; J1644; J2060; J2270; J3486; Q9967